=== PATIENT | female | born 1985 | race Caucasian/White ===

== ENCOUNTER → 2016-08-07 | Day surgery (SDC) | payer OTHER ==
[2016-08-06 13:44] VITALS: BMI 22.0
[~2016-08-07] VITALS: Ht 157.5 cm; Wt 55.5 kg
[~2016-08-07] MED LIST: LIDOCAINE HCL 2% 2 ML VIAL (20MG/ML) ONE; MIDAZOLAM HCL 1 MG/ML 2ML VIAL ONE; ONDANSETRON INJ 2 MG/ML 2 ML VIAL ONE; PROPOFOL IV EMULSION 10 MG/ML 20 ML VIAL IV ONE; SODIUM CHLORIDE 0.9% 500ML 500 ML IV ONE
[2016-08-07 13:49] VITALS: Ht 157.5 cm; Wt 55.5 kg
--- NOTE | 2016-08-07 14:08 | Endo History and Physical ---
History & Physical Date of Service: Aug 07, 2016. Chief Complaint: DYSPHAGIA AND SORE THROAT Referring Physician: DR MA History of Present Illness 30 yo CF who presents for EGD secondary to dysphagia and Sore throat. 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) Hx Thoracic Surgery: No Hx Orthopedic: No Hx Urinary Tract Surgery: No Family History None Social History Smoking Status: Never Smoker Hx Substance Use: No Hx Alcohol Use: No Allergies Coded Allergies: Penicillins (Verified Allergy, Unknown, RASH A BABY, 08/07/16) Current Medications Reported Home Medications Medications Dose Route/Sig Max Daily Dose Days Date Category No Active Prescriptions or Reported Medications Rx Vital Signs Weight (Kilograms): 55.45 Height (Feet): 5 Height (Inches): 2 Date Time Temp Pulse Resp B/P Pulse Ox O2 Delivery O2 Flow Rate FiO2 08/07/16 13:59 36.7 77 16 113/74 100 Room Air Physical Exam General Appearance: WD/WN, no apparent distress Respiratory/Chest: Auscultation: breath sounds normal Cardiovascular: Heart Auscultation: RRR Abdomen: Bowel Sounds: normal Inspection & Palpation: soft, non-distended, no tenderness, guarding & rebound Assessment and Plan Assessment: 30 yo CF who presents for EGD secondary to dysphagia and Sore throat. Plan: Proceed with EGD.
--- NOTE | 2016-08-07 14:48 | GI REPORT ---
Procedure Date: 08/07/2016 2:19 PM THIS REPORT HAS BEEN AMENDED Addendum Number: 1 Addendum Date: 08/07/2016 2:51:47 PM Balloon dilation of the distal esophagus was performed with a TTS balloon and dilated from 18 to 20mm. No change was noted in the distal esophagus on inspection. Procedure: Upper GI endoscopy Indications: Dysphagia Medicines: Monitored Anesthesia Care Complications: No immediate complications. Estimated Blood Loss: Estimated blood loss: none. Procedure: Pre-Anesthesia Assessment: - Prior to the procedure, a History and Physical was performed, and patient medications and allergies were reviewed. The patient's tolerance of previous anesthesia was also reviewed. The risks and benefits of the procedure and the sedation options and risks were discussed with the patient. All questions were answered, and informed consent was obtained. Prior Anticoagulants: The patient has taken no previous anticoagulant or antiplatelet agents. ASA Grade Assessment: II - A patient with mild systemic disease. After reviewing the risks and benefits, the patient was deemed in satisfactory condition to undergo the procedure. After obtaining informed consent, the endoscope was passed under direct vision. Throughout the procedure, the patient's blood pressure, pulse, and oxygen saturations were monitored continuously. The scope was introduced through the mouth, and advanced to the second part of duodenum. The upper GI endoscopy was accomplished without difficulty. The patient tolerated the procedure well. Findings: Mildly severe esophagitis with no bleeding was found. Localized mild inflammation characterized by erythema was found in the gastric antrum. Biopsies were taken with a cold forceps for histology. The examined duodenum was normal. Impression: - Mildly severe reflux esophagitis. - Gastritis. Biopsied. - Normal examined duodenum. Recommendation: - Resume previous diet. - Use Protonix (pantoprazole) 40 mg PO daily. - Await pathology results. - Return to GI office as previously scheduled. Mychal Tuttle DO 08/07/2016 2:46:56 PM This report has been signed electronically. Note Initiated On: 08/07/2016 2:19 PM Mychal Tuttle, DO 08/07/2016 2:53:23 PM This report has been signed electronically.
--- NOTE | 2016-08-07 14:51 | Discharge Instructions ---
Endoscopy Patient Instructions Date / Procedure(s) Performed Aug 07, 2016. EGD Allergy Information Coded Allergies: Penicillins (Verified Allergy, Unknown, RASH A BABY, 08/07/16) Discharge Date / Findings Aug 07, 2016. Gastritis s/p biopsies Reflux esophagitis Medication Instructions Start Protonix 40mg by mouth each morning 1/2 hour prior to breakfast. Reported Home Medications Medications Dose Route/Sig Max Daily Dose Days Date Category No Active Prescriptions or Reported Medications Rx Provider Instructions Activity Restrictions - No exercising or heavy lifting for 24 hours. - Do not drink alcohol the day of the procedure. - Do not drive a car or operate machinery until the day after the procedure. - Do not make any important decisions or sign important papers in 24 hours after the procedure. Following Day: - Return to full activity which may include returning to work/school. Diet Start your diet with liquids and light foods (jello, soup, juice, toast). Then eat your usual diet if not nauseated. Treatment For Common After Affects For mild abdominal pain, bloating, or excessive gas: - Rest - Eat lightly - Lie on right side Follow-Up Information Follow-up with DR MA as scheduled Anesthesia Information What You Should Know You have had a procedure that required some medicine to reduce anxiety and discomfort. This treatment is called moderate sedation. After receiving the treatment, you may be sleepy, but you will be able to breathe on your own. The effects of the treatment may last for several hours. Follow these instructions along with Activity/Diet recommendations noted above: * Do NOT do anything where dizziness or clumsiness would be dangerous. * Rest quietly at home today, then you can be up and about tomorrow. * Have a responsible person stay with you the rest of today. * You may have had an I.V. today. If so, you may take the dressing off later today. Recommendations Call your doctor if: * Trouble breathing * Continuous vomiting for more than 24 hours * Temperature above 101 degrees * Severe abdominal pain or bloating * Pain not relieved by pain medicine ordered * There is increased drainage or redness from any incision * A large amount of rectal bleeding greater than 2-3 tablespoons. (If you had a polyp/s removed or have hemorrhoids, a small amount of blood - from the rectum is to be expected.) * You have any unanswered questions or concerns. IN THE EVENT OF A SERIOUS EMERGENCY, GO TO THE NEAREST EMERGENCY ROOM Your discharge instructions were prepared by provider Mychal Tuttle. Patient Instructions Signature Page Diana Faulkner Patient (or Guardian) Signature/Date: I have read and understand the instructions given to me by my caregivers. Caregiver/RN/Doctor Signature/Date: The above-named patient and/or guardian has received patient instructions on this date. + Original Patient Signature Page (only) stays with chart. Please make copy for patient.
[2016-08-07 15:15] VITALS: BP 122/71; PULSE 64; O2SAT 100
--- NOTE | 2016-08-07 15:27 | Anesthesiology Progress Note ---
Anesthesia Post Op Note Date & Time Aug 07, 2016 at 15:27 Vital Signs Pain Intensity: 0 Vital Signs Past 12 Hours Date Time Temp Pulse Resp B/P Pulse Ox O2 Delivery O2 Flow Rate FiO2 08/07/16 13:59 36.7 77 16 113/74 100 Room Air Notes Mental Status: alert / awake / arousable Nausea / Vomiting: adequately controlled Pain: adequately controlled Airway Patency, RR, SpO2: stable & adequate BP & HR: stable & adequate Hydration State: stable & adequate Anesthetic Complications: no major complications apparent
== END | disposition home or self-care (01) ==
LOC: EEVIPCON 13:39 → C.GI 13:39
PROVIDERS: ATTEND Internal Medicine
DX: R13.10 Dysphagia, unspecified (principal); K29.70 Gastritis, unspecified, without bleeding; K21.0 Gastro-esophageal reflux disease with esophagitis; Z98.890 Other specified postprocedural states; Z88.0 Allergy status to penicillin

== ENCOUNTER → 2017-04-17 | Outpatient (CLI) | payer OTHER ==
[2017-04-17 17:16] LABS: BASO % 0.4 %; BASO ABS # 0.04 K/uL (0-0.2); COMPLETE YES; EOS % 0.7 %; HEMATOCRIT 42.1 % (37-47); IG% 0.4 %; LYMPH % 22.7 %; LYMPH ABS # 2.36 K/uL (1.2-3.4); MEAN CELL VOLUME 93.3 fL (80-100); MEAN CORPUSCULAR HEMOGLOBIN 32.6 pg (25-34); MEAN CORPUSCULAR HGB CONC 34.9 g/dl (32-36); MEAN PLATELET VOLUME 10.5 fL (7.4-10.4); MONO % 7.6 %; NEUT % 68.2 %; PLATELET COUNT 220 K/uL (130-400); RED BLOOD COUNT 4.51 M/uL (4.2-5.4); WHITE BLOOD COUNT 10.41 K/uL (4.8-10.8)
[2017-04-17 17:45] LABS: MAGNESIUM 2.2 mg/dl (1.8-2.4); THYROID STIMULATING HORMONE 1.53 uIu/ml (0.300-4.500)
[2017-04-17 17:53] LABS: LYME DISEASE AB IGG NEG (NEG); LYME DISEASE AB IGM NEG (NEG)
== END | disposition home or self-care (01) ==
LOC: C.LABPVFM 12:02
PROVIDERS: ATTEND Nurse Practitioner
DX: T14.8 Other injury of unspecified body region (principal); W57.XXXA Bitten or stung by nonvenomous insect and other nonvenomous arthropods, initial encounter; R53.83 Other fatigue; Z51.81 Encounter for therapeutic drug level monitoring; Z79.899 Other long term (current) drug therapy

== ENCOUNTER → 2017-07-30 | Outpatient (CLI) | payer OTHER ==
[~2017-07-30] MED LIST changes: +DEXL60CA4 PO; -LIDOCAINE HCL 2% 2 ML VIAL (20MG/ML) ONE; -MIDAZOLAM HCL 1 MG/ML 2ML VIAL ONE; -ONDANSETRON INJ 2 MG/ML 2 ML VIAL ONE; -PROPOFOL IV EMULSION 10 MG/ML 20 ML VIAL IV ONE; -SODIUM CHLORIDE 0.9% 500ML 500 ML IV ONE
--- NOTE | 2017-07-30 07:32 | DIAGNOSTIC IMAGING REPORT ---
BILIARY ABDOMEN LIMITED CLINICAL HISTORY: K20.9 [id number] PhexrN13.13 Abdominal pain, epigastricULTR7 TECHNIQUE: Ultrasound COMPARISON STUDY: None FINDINGS: Normal study. Normal gallbladder. Common bile duct 3 mm. Liver is uniform. Pancreas and right kidney are unremarkable. No evidence for right renal hydronephrosis. IMPRESSION: Normal study The above report was generated using voice recognition software. It may contain grammatical, syntax or spelling errors. Electronically signed by: Alfie Oconnell M.D. 07/30/2017 7:30 AM Dictated Date/Time: 07/30/2017 7:29 AM
== END | disposition home or self-care (01) ==
LOC: C.ULTR 06:51
PROVIDERS: ATTEND Registered Nurse
DX: K20.9 Esophagitis, unspecified (principal); R05 Cough; R10.13 Epigastric pain

== ENCOUNTER → 2017-08-01 | Outpatient (CLI) | payer OTHER ==
[2017-08-01 13:06] LABS: BASO % 0.6 %; BASO ABS # 0.03 K/uL (0-0.2); EOS % 2.1 %; HEMATOCRIT 41.4 % (37-47); HEMOGLOBIN 14.2 g/dL (12.0-16.0); IG# 0.01 K/uL (0.00-0.02); LYMPH % 40.8 %; LYMPH ABS # 1.94 K/uL (1.2-3.4); MEAN CORPUSCULAR HEMOGLOBIN 32.6 pg (25-34); MEAN CORPUSCULAR HGB CONC 34.3 g/dl (32-36); MEAN PLATELET VOLUME 10.9 fL (7.4-10.4); MONO % 7.4 %; MONO ABS # 0.35 K/uL (0.11-0.59); NEUT % 48.9 %; NEUT ABS # 2.32 K/uL (1.4-6.5); PLATELET COUNT 206 K/uL (130-400); RED CELL DISTRIBUTION WIDTH CV 12.5 % (11.5-14.5); RED CELL DISTRIBUTION WIDTH SD 43.9 fL (36.4-46.3); WHITE BLOOD COUNT 4.75 K/uL (4.8-10.8)
[2017-08-01 13:34] LABS: ALBUMIN 4.4 gm/dl (3.4-5.0); ALT/SGPT 40 U/L (12-78); AST/SGOT 24 U/L (15-37); BLOOD UREA NITROGEN 15 mg/dl (7-18); CALCIUM 9.1 mg/dl (8.5-10.1); CARBON DIOXIDE 28 mmol/L (21-32); CREATININE 0.75 mg/dl (0.60-1.20); GLUCOSE 86 mg/dl (70-99); LIPASE 117 U/L (73-393); POTASSIUM 3.8 mmol/L (3.5-5.1); SODIUM 139 mmol/L (136-145)
[2017-08-01 13:36] LABS: ALKALINE PHOSPHATASE 54 U/L (45-117); TOTAL PROTEIN 7.7 gm/dl (6.4-8.2)
== END | disposition home or self-care (01) ==
LOC: C.LABPBG 07:53
PROVIDERS: ATTEND Registered Nurse
DX: R05 Cough (principal)

== ENCOUNTER → 2017-10-24 | Outpatient (CLI) | payer OTHER ==
[2017-10-24 19:06] LABS: ALBUMIN 4.2 gm/dl (3.4-5.0); BLOOD UREA NITROGEN 13 mg/dl (7-18); CALCIUM 8.5 mg/dl (8.5-10.1); CARBON DIOXIDE 30 mmol/L (21-32); GLUCOSE 76 mg/dl (70-99); POTASSIUM 3.7 mmol/L (3.5-5.1); SODIUM 139 mmol/L (136-145)
[2017-10-24 19:17] LABS: PHOSPHORUS 3.6 mg/dl (2.5-4.9)
== END | disposition home or self-care (01) ==
LOC: C.LABMFLN 15:38
PROVIDERS: ATTEND Family Medicine
DX: R00.2 Palpitations (principal)

== ENCOUNTER → 2017-11-27 | Outpatient (CLI) | payer OTHER ==
--- NOTE | 2017-11-27 19:15 | ECHOCARDIOGRAM REPORT ---
*NOTICE TO RECEIVING DEMOCRAT AGENCY This information is strictly Confidential and protected under [place] law. [place] law prohibits you from making any further disclosure of this information unless further disclosure is expressly permitted by the written consent of the person to whom it pertains or is authorized by law. A general authorization for the release of medical or other information is not sufficient for this purpose. Hospital accepts no responsibility if the information is made available to any other person, INCLUDING THE PATIENT. Interpretation Summary * Name: NAN LUGO Study Date: 11/27/2017 02:21 PM BP: 119/59 mmHg * Patient Location: [facility] HR: 78 * : 1985 (M/d/yyyy) Gender: Female Height: 62 in * Age: 32 yrs Ethnicity: CA Weight: 120 lb * Ordering Physician: Cristina Jarquin * Referring Physician: Cristina Jarquin * Performed By: Pushpa Baker RDCS * * Reason For Study: Palpitations * BSA: 1.5 m2 * -- Conclusions -- * 1. Normal LV size. Normal LV wall thickness. * 2. Normal LV systolic function. LVEF 60-65%. No regional wall motion abnormalities. * 3. Normal RV size and function. * 4. No significant valvular pathology. * 5. Normal estimated PA and RA pressures. * 6. No prior studies for comparison. Procedure Details * A complete two-dimensional transthoracic echocardiogram was performed (2D, M-mode, Doppler and color flow Doppler). Left Ventricle * The left ventricle is grossly normal size. * There is normal left ventricular wall thickness. * Ejection Fraction = 60-65%. * No regional wall motion abnormalities noted. Right Ventricle * The right ventricle is grossly normal size. * The right ventricular systolic function is normal as assessed by tricuspid annular plane systolic excursion (TAPSE) (normal >1.5 cm). Atria * The left atrial size is normal. * Right atrial size is normal. * No ASD detected; PFO is not assessed. Mitral Valve * The mitral valve is grossly normal. * There is no mitral valve stenosis. * Significant mitral regurgitation is absent. Tricuspid Valve * The tricuspid valve is not well visualized, but is grossly normal. * There is no tricuspid stenosis. * There is trace tricuspid regurgitation. Aortic Valve * The aortic valve opens well. * The aortic valve is trileaflet. * No hemodynamically significant valvular aortic stenosis. * There is no significant aortic regurgitation. Pulmonic Valve * The pulmonary valve is inadequately visualized, but the Doppler data is adequate for interpretation. Great Vessels * The aortic root and proximal ascending aorta are normal sized. Pericardium/Pleural * There is no pericardial effusion. Great Vessels * Normal inferior vena cava size and collapsability with sniff indicates a normal right atrial pressure of 3 mmHg * There is no evidence of pulmonary hypertension. The PA systolic pressure is less than 36 mmHg. MMode 2D Measurements and Calculations IVSd 0.70 cm LVIDd 4.1 cm LVIDs 2.8 cm LVPWd 0.67 cm IVS/LVPW 1.1 FS 31.0 % EDV(Teich) 74.0 ml ESV(Teich) 30.2 ml EF(Teich) 59.2 % EDV(cubed) 68.7 ml ESV(cubed) 22.5 ml EF(cubed) 67.2 % LV mass(C)d 79.3 grams LV mass(C)dI 51.6 grams/m\S\2 SV(Teich) 43.8 ml SI(Teich) 28.5 ml/m\S\2 SV(cubed) 46.2 ml SI(cubed) 30.0 ml/m\S\2 Ao root diam 2.1 cm Ao root area 3.5 cm\S\2 ACS 1.8 cm LA dimension 2.6 cm asc Aorta Diam 1.8 cm LA/Ao 1.2 LVOT diam 1.9 cm LVOT area 2.8 cm\S\2 LVAd ap4 22.6 cm\S\2 LVLd ap4 6.6 cm EDV(MOD-sp4) 65.8 ml EDV(sp4-el) 65.9 ml LVAs ap4 12.1 cm\S\2 LVLs ap4 5.6 cm ESV(MOD-sp4) 22.3 ml ESV(sp4-el) 22.4 ml EF(MOD-sp4) 66.2 % EF(sp4-el) 66.0 % LVAd ap2 24.3 cm\S\2 LVLd ap2 7.9 cm EDV(MOD-sp2) 60.6 ml EDV(sp2-el) 63.2 ml LVAs ap2 12.3 cm\S\2 LVLs ap2 6.2 cm ESV(MOD-sp2) 20.2 ml ESV(sp2-el) 20.8 ml EF(MOD-sp2) 66.7 % EF(sp2-el) 67.1 % LVLd %diff 17.2 % EDV(MOD-bp) 70.4 ml LVLs %diff 10.2 % ESV(MOD-bp) 22.4 ml EF(MOD-bp) 68.2 % SV(MOD-sp4) 43.6 ml SI(MOD-sp4) 28.3 ml/m\S\2 SV(MOD-sp2) 40.4 ml SI(MOD-sp2) 26.3 ml/m\S\2 SV(MOD-bp) 48.0 ml SI(MOD-bp) 31.2 ml/m\S\2 SV(sp4-el) 43.6 ml SI(sp4-el) 28.3 ml/m\S\2 SV(sp2-el) 42.4 ml SI(sp2-el) 27.6 ml/m\S\2 Doppler Measurements and Calculations MV E max irma 98.4 cm/sec MV A max irma 77.2 cm/sec MV E/A 1.3 MV dec time 0.16 sec Ao V2 max 129.7 cm/sec Ao max PG 6.7 mmHg Ao max PG (full) 1.5 mmHg CARROLL(V,A) 2.5 cm\S\2 CARROLL(V,D) 2.5 cm\S\2 LV V1 max PG 5.2 mmHg LV V1 max 114.3 cm/sec PA V2 max 104.4 cm/sec PA max PG 4.4 mmHg PA acc slope 442.1 cm/sec\S\2 PA acc time 0.20 sec TR max irma 224.9 cm/sec PA pr(Accel) -12.67 mmHg
== END | disposition home or self-care (01) ==
LOC: C.CPL 14:13
PROVIDERS: ATTEND Family Medicine
DX: R00.2 Palpitations (principal)

== ENCOUNTER → 2017-12-08 | Outpatient (CLI) | payer OTHER ==
[2017-12-10 13:25] LABS: QUANTIF MITOGEN-NIL 8.16 IU/ML; QUANTIFERON NEGATIVE (NEGATIVE); QUANTIFERON NIL 0.04 IU/ML
== END | disposition home or self-care (01) ==
LOC: C.LABPBG 10:38
PROVIDERS: ATTEND Nurse Practitioner
DX: Z20.1 Contact with and (suspected) exposure to tuberculosis (principal)

== ENCOUNTER → 2018-03-10 | Outpatient (CLI) | payer OTHER | END | disposition home or self-care (01) | LOC: C.LABPBG 08:26 | PROVIDERS: ATTEND Family Medicine | DX: Z00.00 Encounter for general adult medical examination without abnormal findings (principal); Z13.220 Encounter for screening for lipoid disorders ==

== ENCOUNTER → 2018-03-26 | Day surgery (SDC) | payer OTHER ==
[2018-03-25 08:20] VITALS: BMI 22.0
[~2018-03-26] VITALS: Ht 157.5 cm; Wt 54.5 kg
[~2018-03-26] MED LIST changes: +LIDOCAINE HCL 2% 2 ML VIAL (20MG/ML) ONE; +PROPOFOL IV EMULSION 10 MG/ML 20 ML VIAL ONE; +SODIUM CHLORIDE 0.9% 500ML 500 ML IV ONE
--- NOTE | 2018-03-26 13:55 | Endo History and Physical ---
History & Physical Date of Service: Mar 26, 2018. Chief Complaint: GERD Referring Physician: Livier Orellana History of Present Illness 32 yo CF who presents for EGD secondary to GERD. 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) Hx Thoracic Surgery: No Hx Orthopedic: No Hx Urinary Tract Surgery: No Social History Smoking Status: Never Smoker Hx Substance Use: No Hx Alcohol Use: No Allergies Coded Allergies: Penicillins (Verified Allergy, Unknown, RASH A BABY, 03/25/18) Current Medications Reported Home Medications Medications Dose Route/Sig Max Daily Dose Days Date Category Dexilant (Dexlansoprazole) 60 Mg Cap 1 Cap PO QAM 03/25/18 Reported Vital Signs Weight (Kilograms): 54.55 Height (Feet): 5 Height (Inches): 2 Physical Exam General Appearance: WD/WN, no apparent distress Respiratory/Chest: Auscultation: breath sounds normal Cardiovascular: Heart Auscultation: RRR Abdomen: Bowel Sounds: normal Inspection & Palpation: soft, non-distended, no tenderness, guarding & rebound Assessment and Plan Assessment: 32 yo CF who presents for EGD secondary to GERD. Plan: Proceed with EGD.
[2018-03-26 13:56] VITALS: Ht 157.5 cm; Wt 54.5 kg
--- NOTE | 2018-03-26 15:01 | Discharge Instructions ---
Endoscopy Patient Instructions Date / Procedure(s) Performed Mar 26, 2018. EGD Allergy Information Coded Allergies: Penicillins (Verified Allergy, Unknown, RASH A BABY, 03/25/18) Discharge Date / Findings Mar 26, 2018. Distal esophageal biopsies Medication Instructions OK to resume all medications today as prescribed Reported Home Medications Medications Dose Route/Sig Max Daily Dose Days Date Category Dexilant (Dexlansoprazole) 60 Mg Cap 1 Cap PO QAM 03/25/18 Reported Provider Instructions Activity Restrictions - No exercising or heavy lifting for 24 hours. - Do not drink alcohol the day of the procedure. - Do not drive a car or operate machinery until the day after the procedure. - Do not make any important decisions or sign important papers in 24 hours after the procedure. Following Day: - Return to full activity which may include returning to work/school. Diet Start your diet with liquids and light foods (jello, soup, juice, toast). Then eat your usual diet if not nauseated. Treatment For Common After Affects For mild abdominal pain, bloating, or excessive gas: - Rest - Eat lightly - Lie on right side Follow-Up Information Follow-up with KANDACE VELA as scheduled Anesthesia Information What You Should Know You have had a procedure that required some medicine to reduce anxiety and discomfort. This treatment is called moderate sedation. After receiving the treatment, you may be sleepy, but you will be able to breathe on your own. The effects of the treatment may last for several hours. Follow these instructions along with Activity/Diet recommendations noted above: * Do NOT do anything where dizziness or clumsiness would be dangerous. * Rest quietly at home today, then you can be up and about tomorrow. * Have a responsible person stay with you the rest of today. * You may have had an I.V. today. If so, you may take the dressing off later today. Recommendations Call your doctor if: * Trouble breathing * Continuous vomiting for more than 24 hours * Temperature above 101 degrees * Severe abdominal pain or bloating * Pain not relieved by pain medicine ordered * There is increased drainage or redness from any incision * A large amount of rectal bleeding greater than 2-3 tablespoons. (If you had a polyp/s removed or have hemorrhoids, a small amount of blood - from the rectum is to be expected.) * You have any unanswered questions or concerns. IN THE EVENT OF A SERIOUS EMERGENCY, GO TO THE NEAREST EMERGENCY ROOM Your discharge instructions were prepared by provider Mychal Tuttle. Patient Instructions Signature Page Diana Faulkner Patient (or Guardian) Signature/Date: I have read and understand the instructions given to me by my caregivers. Caregiver/RN/Doctor Signature/Date: The above-named patient and/or guardian has received patient instructions on this date. + Original Patient Signature Page (only) stays with chart. Please make copy for patient.
--- NOTE | 2018-03-26 15:04 | GI REPORT ---
Patient Name: Diana Faulkner Procedure Date: 03/26/2018 2:02 PM Date of : 1985 Admit Type: Outpatient Age: 32 Gender: Female Attending MD: Mychal Tuttle DO Procedure: Upper GI endoscopy Providers: Mychal Tuttle DO Referring MD: Livier Orellana Indications: Gastro-esophageal reflux disease Medicines: Monitored Anesthesia Care Complications: No immediate complications. Estimated Blood Loss: Estimated blood loss: none. Procedure: Pre-Anesthesia Assessment: - Prior to the procedure, a History and Physical was performed, and patient medications and allergies were reviewed. The patient's tolerance of previous anesthesia was also reviewed. The risks and benefits of the procedure and the sedation options and risks were discussed with the patient. All questions were answered, and informed consent was obtained. Prior Anticoagulants: The patient has taken no previous anticoagulant or antiplatelet agents. ASA Grade Assessment: II - A patient with mild systemic disease. After reviewing the risks and benefits, the patient was deemed in satisfactory condition to undergo the procedure. After obtaining informed consent, the endoscope was passed under direct vision. Throughout the procedure, the patient's blood pressure, pulse, and oxygen saturations were monitored continuously. The scope was introduced through the mouth, and advanced to the second part of duodenum. The upper GI endoscopy was accomplished without difficulty. The patient tolerated the procedure well. Findings: The Z-line was irregular and was found 38 cm from the incisors. Biopsies were taken with a cold forceps for histology. The stomach was normal. The examined duodenum was normal. Impression: - Z-line irregular, 38 cm from the incisors. Biopsied. - Normal stomach. - Normal examined duodenum. Recommendation: - Resume previous diet. - Continue present medications. - Await pathology results. - Return to primary care physician as previously scheduled. Mychal Tuttle DO 03/26/2018 3:04:09 PM This report has been signed electronically. Note Initiated On: 03/26/2018 2:02 PM Number of Addenda: 0 I attest to the content of the Intraoperative Record and orders documented therein, exceptions below {[id number]}
[2018-03-26 15:17] VITALS: BP 108/79; PULSE 60; O2SAT 100
--- NOTE | 2018-03-26 15:36 | Anesthesiology Progress Note ---
Anesthesia Post Op Note Date & Time Mar 26, 2018 at 15:36 Vital Signs Vital Signs Past 12 Hours Date Time Temp Pulse Resp B/P (MAP) Pulse Ox O2 Delivery O2 Flow Rate FiO2 03/26/18 14:05 36.9 75 20 115/79 (91) 100 Room Air Notes Mental Status: alert / awake / arousable, participated in evaluation Pt Amnestic to Procedure: Yes Nausea / Vomiting: adequately controlled Pain: adequately controlled Airway Patency, RR, SpO2: stable & adequate BP & HR: stable & adequate Hydration State: stable & adequate Anesthetic Complications: no major complications apparent
== END | disposition home or self-care (01) ==
LOC: C.GI 13:29
PROVIDERS: ATTEND Internal Medicine
DX: K21.9 Gastro-esophageal reflux disease without esophagitis (principal); Z88.0 Allergy status to penicillin; Z79.899 Other long term (current) drug therapy

== ENCOUNTER 2019-08-05 03:41 | Inpatient (IN) ==
[2019-08-05] MEDS ORDERED: OXYTOCIN 30 UNITS/500 ML BAG IV PRN ×2 (06:33→16:45)
--- NOTE | 2019-08-05 06:40 | History & Physical Report ---
Date of Service August 05, 2019 Assessment & Plan (1) Normal labor: IUP at 39 weeks in active labor patient requesting epidural analgesia anticipate vaginal . History of Present Illness Primary Care Provider: Cristina Jarquin MD Patient is a 33 yo white female EDC 08/10/19 who presents at 39 weeks with regular ctns. After walking for 2hours she has progressed from 3 cm to 5cm dilation.Contractions are now 3 minutes apart. GBS negative. has been uncomplicated. Allergies Allergy/AdvReac Type Severity Reaction Status Date / Time Penicillins Allergy Unknown RASH A Verified 08/05/19 03:54 BABY Home Medications Home Medications Medication Instructions Recorded Confirmed Type prenat.vits,chinmay,yby-zwlc-kokpx 1 tab PO DAILY 03/12/19 08/05/19 History ferrous sulfate [Iron (ferrous 325 mg PO WK 08/05/19 08/05/19 History sulfate)] Patient History Medical History (Updated 08/05/19 @ 06:39 by Claire Cazares MD, FACOG) Acid reflux History of angular cheilitis History of breast lump History of chicken pox History of shingles History of UTI Screening, , for anatomic survey (Inactive) Surgical History S/P wisdom tooth extraction Status post Mohs surgery right ear, 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 Social History Preferred Language: Dominican Communication Ability: Effective Rn Charge Required: No Beliefs That Will Affect Care: None marital status: Current Living Situation: Spouse current occupational status: employed current occupation: [employer] Other Information That Helps Us Care for You: No Feels Safe at Home: Yes Safety Concerns: Feels Safe At This Time Smoking Status: Never smoker Second Hand Exposure: No ; Hx Alcohol Use: No Hx Substance Use: No Dental Care, Regularly: Yes Seatbelt Use: always Review of Systems All systems reviewed & are unremarkable except as noted in HPI & below Physical Exam Constitutional: WD/WN, vitals as above Respiratory: normal respiratory effort, lungs clear to auscultation Cardiovascular: RRR, no murmur, no edema Gastrointestinal (Abdomen): normal bowel sounds, soft, nontender, no hepatosplenomegaly Psychiatric: A+Ox3, euthymic affect Genitourinary: OB Exam Abdomen: + regular contractions Manual OB Exam: + cervical dilation 5 cm, + cervical effacement 70% and + station -2 OB Exam Monitor Tracing: + external FHT monitor used, + external uterine monitor used, + category I and + normal FHT variability Results & Data Vital Signs (Past 12 Hours) Vital Signs Temp Pulse Resp BP 08/05/19 04:03 96 H 119/77 08/05/19 03:57 97.9 F 96 H 18 119/77 Code Status & VTE Plan VTE Prophylaxis Plan VTE Prophylaxis will be ordered: No
[2019-08-05] MEDS: LACTATED RINGER'S 1,000 ML IV PRN ×3 (06:45→13:09)
[2019-08-05] MEDS ORDERED: fentaNYL citrate 100 MCG/2 ML VIAL ONE (07:01)
[2019-08-05] MEDS ORDERED: ePHEDrine sulfate 50 MG/ML AMP ONE (07:01)
[2019-08-05] MEDS ORDERED: BUPIVACAINE 0.25% 30 ML VIAL ONE (07:02)
[2019-08-05] MEDS ORDERED: fentaNYL 2MCG/ML ROPIV 1.25MG/ML 100 ML BAG EPI ONE (07:02)
[2019-08-05 07:05] LABS: Hematocrit (blood only) 39.4 % (37-47); Hemoglobin 13.9 g/dL (12.0-16.0); Mean Corpuscular Hemoglobin 33.7 pg (25-34); Mean Corpuscular Volume 95.6 fL (80-100); Mean Platelet Volume 10.2 fL (7.4-10.4); Platelet Count 212 K/uL (130-400); RDW Standard Deviation 45.1 fL (36.4-46.3); Red Blood Count 4.12 M/uL (4.2-5.4); White Blood Count 12.21 K/uL (4.8-10.8)
[2019-08-05 07:09] LABS: Mean Corpuscular Hgb Conc 35.3 g/dL (32-36)
[2019-08-05] MEDS ORDERED: ePHEDrine sulfate 50 MG/ML AMP IV PRN (08:39)
[2019-08-05] MEDS ORDERED: ONDANSETRON INJ 2 MG/ML 2 ML VIAL IV PRN (08:39)
[2019-08-05] MEDS ORDERED: DiphenhydrAMINE HCL 50 MG/ML VIAL IV PRN (08:39)
[2019-08-05] MEDS ORDERED: NALBUPHINE HCL INJ 10 MG/ML AMP IV PRN (08:39)
[2019-08-05] MEDS ORDERED: fentaNYL 2MCG/ML ROPIV 1.25MG/ML 100 ML BAG EPI PRN (08:39)
[2019-08-05] MEDS ORDERED: NALOXONE HCL 0.4 MG/1 ML VIAL/CARP IV PRN (08:39)
[2019-08-05] MEDS ORDERED: NALOXONE HCL 1 MG in SODIUM CHLORIDE 0.9% 1000ML 1,000 ML IV PRN (08:39)
--- NOTE | 2019-08-05 08:39 | Anesthesiology Consultation ---
Date of Service August 05, 2019 Assessment & Plan (1) Encounter for pre-operative examination: Chart Review Chart Review: Patient NOT seen in Pre Admission Testing and Acceptable Risk for Labor Epidural Consults Requested none ASA ASA2 Proposed Anesthesia Anesthesia Type: Labor Epidural Risk / Benefits Reviewed With: PT / POA / Parent / Guardian, Accepts Plan and Informed Consent Obtained History Height/Weight Height: 5 ft 2 in Weight: 64.41 kg Allergies Allergy/AdvReac Type Severity Reaction Status Date / Time Penicillins Allergy Unknown RASH A Verified 08/05/19 03:54 BABY Medications Home Medications Medication Instructions Recorded Confirmed Last Taken prenat.vits,chinmay,dvr-zkca-qzenp 1 tab PO DAILY 03/12/19 08/05/19 08/03/19 20:00 ferrous sulfate [Iron (ferrous 325 mg PO WK 08/05/19 08/05/19 07/29/19 20:00 sulfate)] Active Medications Generic Name Dose Route Start Last Admin Trade Name Freq PRN Reason Stop Dose Admin Lactated Ringer's 1,000 mls @ 125 mls/hr 08/05/19 06:33 08/05/19 07:39 Lr IV 08/07/19 06:32 125 mls/hr .Q8H PRN Administration L&D Protocol Protocol NPO Date Last Intake of Fluids: 08/05/19 Time Last Intake of Fluids: 06:00 Date Last Intake of Solids: 08/04/19 Time Last Intake of Solids: 23:00 Past Medical History Medical History Acid reflux History of angular cheilitis History of breast lump History of chicken pox History of shingles History of UTI Screening, , for anatomic survey (Inactive) Exercise / Class Metabolic Activity II 4-5 Yardwork/Stairs/Walk up hill Past Family History Family History Mother Diabetes delivery Grandfather (Maternal) Leukemia Past Surgical History Surgical History S/P wisdom tooth extraction Status post Mohs surgery right ear, 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 Past Anesthesia History No Hx of Anesthesia Complications and No Family Hx of Anesthesia Complications History of PONV No Hx of PONV and No Hx of Motion Sickness Social History Smoking Status: Never smoker Hx Alcohol Use: No Hx Substance Use: No substance use type: does not use Physical Exam Vital Signs Last Vital Signs Temp 36.6 C 08/05/19 06:59 Pulse 73 08/05/19 08:36 Resp 18 08/05/19 08:15 BP 114/56 L 08/05/19 08:36 Pulse Ox 97 08/05/19 08:31 ENMT Mouth: no dentition abnormality Thyromental Distance: > or= 3.5 Finger Breadths Mallampati Class: II Neck normal visual inspection Respiratory normal respiratory effort Auscultation: lungs clear to auscultation bilaterally Cardiovascular Rate/Rhythm: regular rate and regular rhythm Psychiatric Orientation: alert Testing Laboratory Results 08/05/19 06:54
--- NOTE | 2019-08-05 09:40 | Labor Progress Brief Note ---
Date of Service August 05, 2019 Subjective Comfortable with epidural Assessment & Plan (1) Normal labor: Continue epidural. AROM augmentation done this exam. Present on Admission?: Yes Physical Exam Genitourinary: Manual OB Exam: + cervical dilation 6 cm, + cervical effacement 100%, + station -1 and + amniotic fluid (AROM) clear Results & Data Vital Signs (Past 12 Hours) Vital Signs Temp Pulse Resp BP Pulse Ox 08/05/19 09:36 76 97 08/05/19 09:31 94 H 117/64 96 08/05/19 09:26 81 96 08/05/19 09:21 83 97 08/05/19 09:16 79 98 08/05/19 09:15 114 H 101/70 08/05/19 09:13 98.8 F 08/05/19 09:11 92 H 96 08/05/19 09:10 80 114/58 L 08/05/19 09:06 80 96 08/05/19 09:04 110 H 107/58 L 08/05/19 09:01 70 96 08/05/19 09:00 99 H 18 116/59 L 08/05/19 08:56 67 97 08/05/19 08:54 121 H 114/56 L 08/05/19 08:51 81 116/64 97 08/05/19 08:46 111 H 97 08/05/19 08:45 92 H 108/57 L 08/05/19 08:41 71 97 08/05/19 08:38 121 H 104/58 L 08/05/19 08:36 92 H 114/56 L 97 08/05/19 08:34 90 119/61 08/05/19 08:32 76 112/55 L 08/05/19 08:31 68 97 08/05/19 08:30 62 18 120/58 L 08/05/19 08:28 113 H 102/55 L 08/05/19 08:26 95 H 108/55 L 98 08/05/19 08:24 71 119/58 L 08/05/19 08:22 70 123/57 L 08/05/19 08:21 76 97 08/05/19 08:20 91 H 106/60 08/05/19 08:18 71 122/59 L 08/05/19 08:16 79 115/53 L 99 08/05/19 08:15 18 08/05/19 08:14 85 114/58 L 08/05/19 08:12 82 119/57 L 08/05/19 08:11 87 99 08/05/19 08:10 75 110/59 L 08/05/19 08:08 76 123/58 L 08/05/19 08:06 115 H 106/62 98 08/05/19 08:04 90 119/57 L 08/05/19 08:02 90 113/61 08/05/19 08:01 87 97 08/05/19 08:00 90 16 116/64 08/05/19 07:58 97 H 116/65 08/05/19 07:56 93 H 117/66 97 08/05/19 07:54 87 129/75 08/05/19 07:51 104 H 96 08/05/19 07:50 92 H 121/69 08/05/19 07:49 18 08/05/19 07:46 103 H 96 08/05/19 07:41 97 H 98 08/05/19 07:36 109 H 97 08/05/19 07:31 99 H 99 08/05/19 07:26 86 98 08/05/19 07:21 89 97 08/05/19 07:16 90 97 08/05/19 07:11 157 H 91 08/05/19 06:59 97.9 F 91 H 20 130/72 08/05/19 04:03 96 H 119/77 08/05/19 03:57 97.9 F 96 H 18 119/77
--- NOTE | 2019-08-05 14:35 | Labor Progress Brief Note ---
Date of Service August 05, 2019 Subjective Comfortable with epidural Assessment & Plan (1) Normal labor: Begin second stage Physical Exam Genitourinary: Manual OB Exam: + cervical dilation 10 cm, + cervical effacement 100%, + station + 1 and + amniotic fluid clear OB Exam Monitor Tracing: + category I Results & Data Vital Signs (Past 12 Hours) Vital Signs Temp Pulse Resp BP Pulse Ox 08/05/19 14:33 131 H 107/55 L 08/05/19 14:31 109 H 96 08/05/19 14:26 122 H 95 08/05/19 14:21 86 97 08/05/19 14:17 85 97/52 L 08/05/19 14:16 84 95 08/05/19 14:11 90 95 08/05/19 14:06 94 H 97 08/05/19 14:01 88 105/58 L 97 08/05/19 14:00 20 08/05/19 13:56 85 98 08/05/19 13:51 99 H 98 08/05/19 13:47 130 H 112/57 L 08/05/19 13:46 69 97 08/05/19 13:41 80 97 08/05/19 13:36 96 H 98 08/05/19 13:34 98.8 F 08/05/19 13:31 96 H 102/57 L 99 08/05/19 13:30 20 08/05/19 13:26 84 98 08/05/19 13:21 79 96 08/05/19 13:17 83 105/53 L 08/05/19 13:16 84 97 08/05/19 13:11 82 96 08/05/19 13:06 79 97 08/05/19 13:01 91 H 120/56 L 97 08/05/19 13:00 20 08/05/19 12:56 78 96 08/05/19 12:51 112 H 95 08/05/19 12:46 82 111/53 L 96 08/05/19 12:45 99.5 F 18 08/05/19 12:41 76 117/56 L 96 08/05/19 12:36 118 H 96 08/05/19 12:33 121 H 78/42 L 08/05/19 12:31 94 H 96 08/05/19 12:30 16 08/05/19 12:26 86 95 08/05/19 12:21 79 96 08/05/19 12:17 104 H 86/50 L 08/05/19 12:16 80 96 08/05/19 12:11 106 H 96 08/05/19 12:06 96 H 96 08/05/19 12:02 81 98/53 L 08/05/19 12:01 78 95 08/05/19 12:00 18 08/05/19 11:56 81 97 08/05/19 11:51 86 97 08/05/19 11:46 78 106/58 L 97 08/05/19 11:45 16 08/05/19 11:41 73 97 08/05/19 11:36 70 95 08/05/19 11:31 142 H 93/55 L 96 08/05/19 11:30 18 08/05/19 11:26 84 96 08/05/19 11:21 101 H 95 08/05/19 11:17 136 H 106/53 L 08/05/19 11:16 117 H 96 08/05/19 11:15 18 08/05/19 11:11 96 H 95 08/05/19 11:06 74 96 08/05/19 11:01 73 97/51 L 96 08/05/19 11:00 98.6 F 20 08/05/19 10:56 78 96 08/05/19 10:51 86 96 08/05/19 10:46 106 H 101/52 L 95 08/05/19 10:41 113 H 97 08/05/19 10:36 99 H 97 08/05/19 10:32 113 H 106/61 08/05/19 10:31 110 H 96 08/05/19 10:30 18 08/05/19 10:26 105 H 97 08/05/19 10:21 73 96 08/05/19 10:17 108 H 108/61 08/05/19 10:16 108 H 97 08/05/19 10:15 20 08/05/19 10:11 88 96 08/05/19 10:06 106 H 97 08/05/19 10:03 109 H 106/62 08/05/19 10:01 95 H 97 08/05/19 10:00 16 08/05/19 09:56 115 H 97 08/05/19 09:51 74 97 08/05/19 09:47 82 117/56 L 08/05/19 09:46 86 97 08/05/19 09:45 16 08/05/19 09:41 72 97 08/05/19 09:36 76 97 08/05/19 09:31 94 H 117/64 96 08/05/19 09:30 18 08/05/19 09:26 81 96 08/05/19 09:21 83 97 08/05/19 09:16 79 98 08/05/19 09:15 114 H 16 101/70 08/05/19 09:13 98.8 F 08/05/19 09:11 92 H 96 08/05/19 09:10 80 114/58 L 08/05/19 09:06 80 96 08/05/19 09:04 110 H 107/58 L 08/05/19 09:01 70 96 08/05/19 09:00 99 H 18 116/59 L 08/05/19 08:56 67 97 08/05/19 08:54 121 H 114/56 L 08/05/19 08:51 81 116/64 97 08/05/19 08:46 111 H 97 08/05/19 08:45 92 H 108/57 L 08/05/19 08:41 71 97 08/05/19 08:38 121 H 104/58 L 08/05/19 08:36 92 H 114/56 L 97 08/05/19 08:34 90 119/61 08/05/19 08:32 76 112/55 L 08/05/19 08:31 68 97 08/05/19 08:30 62 18 120/58 L 08/05/19 08:28 113 H 102/55 L 08/05/19 08:26 95 H 108/55 L 98 08/05/19 08:24 71 119/58 L 08/05/19 08:22 70 123/57 L 08/05/19 08:21 76 97 08/05/19 08:20 91 H 106/60 08/05/19 08:18 71 122/59 L 08/05/19 08:16 79 115/53 L 99 08/05/19 08:15 18 08/05/19 08:14 85 114/58 L 08/05/19 08:12 82 119/57 L 08/05/19 08:11 87 99 08/05/19 08:10 75 110/59 L 08/05/19 08:08 76 123/58 L 08/05/19 08:06 115 H 106/62 98 08/05/19 08:04 90 119/57 L 08/05/19 08:02 90 113/61 08/05/19 08:01 87 97 08/05/19 08:00 90 16 116/64 08/05/19 07:58 97 H 116/65 08/05/19 07:56 93 H 117/66 97 08/05/19 07:54 87 129/75 08/05/19 07:51 104 H 96 08/05/19 07:50 92 H 121/69 08/05/19 07:49 18 08/05/19 07:46 103 H 96 08/05/19 07:41 97 H 98 08/05/19 07:36 109 H 97 08/05/19 07:31 99 H 99 08/05/19 07:26 86 98 08/05/19 07:21 89 97 08/05/19 07:16 90 97 08/05/19 07:11 157 H 91 08/05/19 06:59 97.9 F 91 H 20 130/72 08/05/19 04:03 96 H 119/77 08/05/19 03:57 97.9 F 96 H 18 119/77
--- NOTE | 2019-08-05 16:30 | Delivery Summary ---
Vaginal Delivery Summary Date of Service August 05, 2019 Vaginal Delivery Summary DIAGNOSES: 1. Posada intrauterine at 39w4d gestation. 2. Spontaneous onset of labor. 3. Group B Streptococcus Neg. PROCEDURE: Spontaneous vaginal delivery and repair of second degree laceration. SURGEON: Enedelia Valladares MD. MEAT CLERK: None. ESTIMATED BLOOD LOSS: 300 mL. COMPLICATIONS: None. PLACENTA: Spontaneous and intact with a 3-vessel cord. DISPOSITION: Stable to labor and delivery. DESCRIPTION: The patient pushed well and brought the head to in OA position. The infant's head was allowed to deliver with contraction force and no further active pushing, with the perineum protected during this time. The shoulders delivered easily with a maternal pushing effort. There was no nuchal cord. The left shoulder was anterior. The shoulders and body delivered without any difficulty, and the was placed on the maternal abdomen. It was vigorous and moving all extremities, and making respiratory efforts. The cord was doubly clamped by the MD and then cut by the MD. The placenta delivered spontaneously and was noted to be intact and with a 3VC. The cervix, vagina and perineum were examined and were found to have a second degree la ceration that was repaired with vicryl suture.. The fundus was firm and lochia minimal immediately after delivery.
[2019-08-05] MEDS ORDERED: BENZOCAINE 20% AER SPR 82.5 GM CAN EXT PRN (16:45)
[2019-08-05] MEDS ORDERED: LACTATED RINGER'S 1,000 ML IV SCH (16:45)
[2019-08-05] MEDS ORDERED: OXYCODONE/ACETAMINOPHEN 5mg/325mg TAB PO PRN (16:45)
[2019-08-05] MEDS ORDERED: DIPHTHERIA/TETANUS/PERTUSSIS 0.5 ML SYR/VIAL IM ONE (16:45)
[2019-08-05] MEDS ORDERED: bisacodyL 10 MG SUPP PR PRN (16:45)
[2019-08-05] MEDS ORDERED: HYDROCORTISONE ACETATE 25 MG SUPP PR PRN (16:45)
[2019-08-05] MEDS ORDERED: SUPERCREAM 0.870% 15 GM JAR EXT PRN (16:45)
--- NOTE | 2019-08-05 16:51 | Anesthesia Procedure Note ---
Date of Service August 05, 2019 Anesthesia Post Epidural Note Vital Signs Vital Signs: Temp Pulse Resp BP Pulse Ox 37.1 C 73 20 137/78 97 08/05/19 14:33 08/05/19 16:46 08/05/19 15:00 08/05/19 16:46 08/05/19 16:07 Pain Intensity Bilateral Abdomen: Pain Intensity: 5 Notes Mental Status: alert / awake / arousable Nausea / Vomiting: adequately controlled Pain: adequately controlled Airway Patency, RR, SpO2: stable & adequate BP & HR: stable & adequate Hydration State: stable & adequate Neuraxial Anesthesia: was administered and sensory block is resolving Anesthetic Complications: no major complications apparent and Pt Satisfied with anesthetic care Epidural: Removed without complications and With tip intact
[2019-08-05] MEDS: IBUPROFEN 600 MG TAB PO PRN (19:11)
[2019-08-05] MEDS: ACETAMINOPHEN 325 MG TAB PO PRN (21:41)
[2019-08-05] MEDS: DOCUSATE SODIUM 100 MG CAP PO SCH (21:41)
[2019-08-06] MEDS: IBUPROFEN 600 MG TAB PO PRN ×2 (00:39→17:26)
[2019-08-06] MEDS: ACETAMINOPHEN 325 MG TAB PO PRN ×2 (05:51→13:43)
[2019-08-06 06:33] LABS: Hematocrit (blood only) 33.5 % (37-47); Hemoglobin 11.5 g/dL (12.0-16.0); Mean Corpuscular Hemoglobin 32.9 pg (25-34); Mean Corpuscular Hgb Conc 34.3 g/dL (32-36); Mean Corpuscular Volume 95.7 fL (80-100); Mean Platelet Volume 10.3 fL (7.4-10.4); Platelet Count 161 K/uL (130-400); RDW Coefficient of Variation 13.4 % (11.5-14.5); RDW Standard Deviation 46.2 fL (36.4-46.3); White Blood Count 12.88 K/uL (4.8-10.8)
[2019-08-06] MEDS ORDERED: PRENATAL VITAMIN 1 TAB PO SCH (08:00)
--- NOTE | 2019-08-06 08:02 | Obstetrical Progress Note ---
Date of Service August 06, 2019 Assessment & Plan (1) Normal labor: PPD#1 recovering well. Wishes D/C home at 24hr post delivery. Subjective Ambulation: ambulating normally Voiding: no voiding problems Passing Gas:: Yes Diet Tolerance:: regular diet Lochia:: Small Feeding Type:: breast feeding Physical Exam Constitutional WD/WN, vitals as above Eyes PERRL, conjunctivae normal, anicteric sclerae Neck normal visual inspection Respiratory normal respiratory effort and able to speak in complete sentences; no respiratory distress and no labored breathing Cardiovascular Rate/Rhythm: regular rate and regular rhythm Extremities: no edema Chest (Breasts) Chest: normal inspection of chest Gastrointestinal (Abdomen) Inspection/Auscultation: abdomen normal to inspection Soft, postgravid Psychiatric A+Ox3, euthymic affect Genitourinary OB Exam Abdomen: + fundal height Fundus: + firm and + relation to umbilicus (fundus just below umbilicus); not tender Results & Data Vital Signs (Past 12 Hours) Vital Signs Temp Pulse Resp BP Pulse Ox 08/06/19 03:50 97.9 F 75 18 114/78 97 08/06/19 00:35 98.2 F 54 L 18 134/87
[2019-08-06] MEDS: DOCUSATE SODIUM 100 MG CAP PO SCH (09:08)
[2019-08-06] MEDS ORDERED: bisacodyL 5 MG TABEC PO SCH (20:00)
== END 2019-08-06 19:35 | disposition home or self-care (01) | DRG 807 ==
LOC: OPB 03:41 → 4S1 03:43 → 4S2 19:15

== ENCOUNTER 2021-11-12 07:47 | Inpatient (IN) ==
[2021-11-12] MEDS ORDERED: OXYTOCIN 30 UNITS/500 ML BAG IV PRN ×2 (07:52→09:39)
--- NOTE | 2021-11-12 08:05 | History & Physical Report ---
Date of Service November 12, 2021 Assessment & Plan (1) 40 weeks gestation of : Plan: plan induction with pitocin, arom as indicated, epidural on demand. fetus category one. anticipate . Admission and Anticipated Discharge Date Admission Date: November 12, 2021 History of Present Illness Chief Complaint: postdates induction Primary Care Provider: SUNDAR Toribio Patient is a [id number] with iup at 40 6/7 weeks who presents to labor and delivery for induction of labor for postdates. Notes good fm, no lof, vb, occasional contractions. has been uncomplicated. and Delivery Plans Spouse has Bicuspid Aortic Valve * echo 22-24wks -Normal *needs PPX echo *ok to deliver at [facility] History of Blighted Ovum in previous Flu shot given 04/26/21 SB IOL 11/12/21 OB Labs: Blood Type O Positive 12/29/18 Antibody Screen NEGATIVE 12/29/18 Hemoglobin 11.7 g/dL (11.7-15.5) 08/16/21 Hematocrit 34.3 % (35.0-45.0) L 08/16/21 Mean Corpuscular Volume 95.9 fL (80.0-100.0) 03/29/21 Platelet Count 203 Thousand/uL (140-400) 03/29/21 Rubella IgG Antibody 4.31 Index 03/29/21 Rapid Plasma Reagin Nonreactive (Nonreactive) 12/29/18 Hepatitis B Surface Antigen Neg (Neg) 12/29/18 HIV (1&2) Ab and P24 Ag, 4th Gener NON-REACTIVE (NON-REACTIVE) 03/29/21 Glucose 1 Hour 50 gm Load 104 mg/dL (<135) 08/16/21 OB Optional Labs: Chlamydia trachomatis RNA NOT DETECTED (NOT DETECTED) 03/29/21 Neisseria gonorrhoeae RNA NOT DETECTED (NOT DETECTED) 03/29/21 Thyroid Stimulating Hormone (TSH) 1.880 uIu/ml (0.300-4.500) 10/24/17 Labs Reviewed: declined panorama--[facility] 04/2021 declined cf/sma--[facility] 04/2021 declines quad GBS negative--[facility] Allergies Allergy/AdvReac Type Severity Reaction Status Date / Time adhesive Allergy Mild rash with Verified 11/09/21 08:54 bandaids Penicillins Allergy Mild RASH A Verified 11/09/21 08:54 BABY Home Medications Medication Instructions Recorded Confirmed Type prenat.vits,chinmay,zyk-bnqi-hmiyj 1 tab PO HS 03/12/19 11/09/21 History Patient History Medical History Acid reflux Blighted ovum Encounter for pre-operative examination size inconsistent with dates History of angular cheilitis History of breast lump History of melanoma Surgical History History of dilation and curettage History of esophagogastroduodenoscopy (EGD) x2 S/P wisdom tooth extraction Status post Mohs surgery right ear, 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 Family History Mother Diabetes delivery Grandfather (Maternal) Leukemia Brother Dysrhythmia Other No family history of adverse response to anesthesia Denies family history of Ovarian cancer Prostate cancer Crohn's disease Myocardial infarction Breast cancer Colorectal cancer Social History (Updated 03/23/21 @ 08:56 by Richelle Nesbitt RN) Smoking Status: Never smoker Second Hand Exposure: No; Hx Alcohol Use: No Hx Substance Use: No Preferred Language: Spanish Communication Ability: Effective Visual Impairment: No Limitations Hearing Ability: Normal Worm Packer Required: No Beliefs That Will Affect Care: None marital status: marital status details: Alexis (30) [phone] Current Living Situation: Family Current Living Situation Comment: lives with spouse and daughter current occupational status: employed current occupation: [employer] Feels Safe at Home: Yes Dental Care, Regularly: Yes Seatbelt Use: always Assistive Devices: None OB History Past Pregnancies Del. Date GA wks Lbr Lgth wt Sex Type del Anes Place Del Prov ? Comment 08/05/19 39 7lb 0oz F Epidu [facility] Dr. Valladares No 11/03/20 Aborted-Spontaneous [employer] History noncontributory Physical Exam Constitutional: WD/WN, vitals as above Neck: trachea midline, no thyromegaly Gastrointestinal (Abdomen): soft, gravid, nt Psychiatric: A+Ox3, euthymic affect Genitourinary: cx--75/-2/post/soft, efw 7-8# toco--occasional contractions efm--150s with mod variability, accels to 160s, no decels Code Status & VTE Plan VTE Prophylaxis Plan VTE Prophylaxis will be ordered: No Coding Level of Care Code None Diagnoses 40 weeks gestation of Z3A.40
[2021-11-12 08:31] LABS: Hemoglobin 12.4 g/dL (12.0-16.0); Mean Corpuscular Hemoglobin 31.4 pg (25-34); Mean Corpuscular Hgb Conc 33.5 g/dL (32-36); Mean Corpuscular Volume 93.7 fL (80-100); Mean Platelet Volume 10.3 fL (7.4-10.4); Platelet Count 209 K/uL (130-400); RDW Standard Deviation 48.1 fL (36.4-46.3); Red Blood Count 3.95 M/uL (4.2-5.4)
[2021-11-12] MEDS: LACTATED RINGER'S 1,000 ML IV PRN ×3 (08:49→15:18)
[2021-11-12] MEDS ORDERED: ePHEDrine sulfate 50 MG/ML AMP ONE (12:13)
[2021-11-12] MEDS ORDERED: fentaNYL citrate 100 MCG/2 ML VIAL ONE (12:13)
[2021-11-12] MEDS ORDERED: BUPIVACAINE 0.25% 30 ML VIAL ONE (12:13)
[2021-11-12] MEDS ORDERED: SODIUM CHLORIDE 0.9% INJ 10 ML VIAL ONE (12:13)
[2021-11-12] MEDS ORDERED: fentaNYL 2MCG/ML ROPIVACAINE 1.25MG/ML 100 ML BAG EPI ONE (12:14)
[2021-11-12] MEDS ORDERED: NALOXONE HCL 1 MG in SODIUM CHLORIDE 0.9% 1000ML 1,000 ML IV PRN ×2 (13:08→19:16)
[2021-11-12] MEDS ORDERED: NALOXONE HCL 0.4 MG/1 ML VIAL/CARP IV PRN ×2 (13:08→19:16)
[2021-11-12] MEDS ORDERED: PROMETHAZINE HCL 6.25 MG in SODIUM CHLORIDE 0.9% 50 ML IV PRN ×2 (13:08→19:16)
[2021-11-12] MEDS ORDERED: fentaNYL 2MCG/ML ROPIVACAINE 1.25MG/ML 100 ML BAG EPI PRN (13:08)
[2021-11-12] MEDS ORDERED: NALBUPHINE HCL INJ 10 MG/ML AMP IV PRN ×2 (13:08→19:16)
[2021-11-12] MEDS ORDERED: diphenhydrAMINE 50 MG/ML VIAL IV PRN (13:08)
[2021-11-12] MEDS ORDERED: ONDANSETRON INJ 2 MG/ML 2 ML VIAL IV PRN ×2 (13:08→19:16)
[2021-11-12] MEDS ORDERED: ePHEDrine sulfate 50 MG/ML AMP IV PRN ×2 (13:08→19:16)
--- NOTE | 2021-11-12 13:10 | Anesthesiology Consultation ---
Date of Service November 12, 2021 Assessment & Plan Chart Review Chart Review: Patient NOT seen in Pre Admission Testing and Acceptable Risk for Labor Epidural Consults Requested none ASA ASA2 Proposed Anesthesia Anesthesia Type: Labor Epidural Risk / Benefits Reviewed With: PT / POA / Parent / Guardian, Accepts Plan and Informed Consent Obtained History Height/Weight Height: 5 ft 2 in Weight: 66.224 kg Allergies Allergy/AdvReac Type Severity Reaction Status Date / Time adhesive Allergy Mild rash with Verified 11/12/21 09:00 bandaids Penicillins Allergy Mild RASH A Verified 11/12/21 09:00 BABY Medications Home Medications Medication Instructions Recorded Confirmed Last Taken prenat.vits,chinmay,owa-vmnt-npihv 1 tab PO HS 03/12/19 11/12/21 11/02/21 Active Medications Generic Name Dose Route Start Last Admin Trade Name Freq PRN Reason Stop Dose Admin Lactated Ringer's 1,000 mls @ 125 mls/hr 11/12/21 07:52 11/12/21 12:44 Lr IV 11/14/21 07:51 125 mls/hr .Q8H PRN Administration L&D Protocol Protocol Oxytocin 30 units in 500 mls @ 10 mls/hr 11/12/21 09:39 11/12/21 12:00 Pitocin IV 11/14/21 09:38 0.6 units/hr .Q24H PRN 10 mls/hr Labor Induction/Augmentation Titration Protocol 0.6 UNITS/HR Past Medical History Medical History Acid reflux Blighted ovum Encounter for pre-operative examination size inconsistent with dates History of angular cheilitis History of breast lump History of melanoma Exercise / Class Metabolic Activity II 4-5 Yardwork/Stairs/Walk up hill Past Family History Family History Mother Diabetes delivery Grandfather (Maternal) Leukemia Brother Dysrhythmia Other No family history of adverse response to anesthesia Denies family history of Ovarian cancer Prostate cancer Crohn's disease Myocardial infarction Breast cancer Colorectal cancer Past Surgical History Surgical History History of dilation and curettage History of esophagogastroduodenoscopy (EGD) x2 S/P wisdom tooth extraction Status post Mohs surgery right ear, 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 Past Anesthesia History No Hx of Anesthesia Complications and No Family Hx of Anesthesia Complications History of PONV No Hx of PONV and No Hx of Motion Sickness Social History Smoking Status: Never smoker Hx Alcohol Use: No Hx Substance Use: No substance use type: does not use Physical Exam Vital Signs Last Vital Signs Temp 36.5 C 11/12/21 11:02 Pulse 83 11/12/21 13:09 Resp 20 11/12/21 12:01 BP 110/59 L 11/12/21 13:09 Pulse Ox 98 11/12/21 13:07 ENMT Mouth: no dentition abnormality Thyromental Distance: > or= 3.5 Finger Breadths Mallampati Class: II Neck normal visual inspection Respiratory normal respiratory effort Auscultation: lungs clear to auscultation bilaterally Cardiovascular Rate/Rhythm: regular rate and regular rhythm Psychiatric Orientation: alert Testing Laboratory Results 11/12/21 08:20
--- NOTE | 2021-11-12 13:44 | Labor Progress Brief Note ---
Date of Service November 12, 2021 Subjective comfortable after epidural Assessment & Plan (1) 40 weeks gestation of : Plan: doing will, continue current management. fetus category one. anticipate . Admission and Anticipated Discharge Date Admission Date: November 12, 2021 Physical Exam Physical Exam: cx--6/80/-2 arom--copious clear toco--q2-3min, pit at 10 efm--130s with mod variability, accels to 160s, +scalp stim, no decels Results & Data ([facility]) Vital Signs (Past 12 Hours) Vital Signs Temp Pulse Resp BP Pulse Ox 11/12/21 13:37 107 H 98 11/12/21 13:32 77 96/53 L 98 11/12/21 13:27 92 H 97 11/12/21 13:22 104 H 97 11/12/21 13:17 84 98 11/12/21 13:13 82 95/53 L 11/12/21 13:12 86 98 11/12/21 13:09 83 110/59 L 11/12/21 13:07 80 98 11/12/21 13:02 89 99 11/12/21 13:01 94 H 104/59 L 11/12/21 12:59 90 105/58 L 11/12/21 12:57 83 113/59 L 99 11/12/21 12:55 90 112/63 11/12/21 12:52 91 H 99 11/12/21 12:47 120 H 100 11/12/21 12:42 103 H 100 11/12/21 12:02 82 109/65 11/12/21 12:01 20 11/12/21 11:02 36.5 C 87 20 113/67 11/12/21 09:55 94 H 116/71 11/12/21 08:23 36.6 C 96 H 20 138/66 11/12/21 08:07 96 H 138/66 Coding Level of Care Code None Diagnoses 40 weeks gestation of Z3A.40
--- NOTE | 2021-11-12 15:10 | Labor Progress Brief Note ---
Date of Service November 12, 2021 Subjective comfortable with epidural. ctsp because of variables with contractions since rupture. Assessment & Plan (1) 40 weeks gestation of : (2) Antepartum variable deceleration: Plan: Starting to look better. Will continue to monitor closely. Have discussed the situation in detail with the patient and her . Discussed that if these deep variables persist, will likely need to proceed with c/s delivery. I have tried everything within my power to make these better. They understand that still remote from delivery at 7cm. They express understanding of the potentials of the situation. discussed that if contractions spaced and not strong enough, may need to reconsider pitocin if appropriate for the baby. Admission and Anticipated Discharge Date Admission Date: November 12, 2021 Physical Exam Physical Exam: cx--now /-1 toco--q2-4, pit now off, contractions have spaced a bit efm--now 115-120 with mod variability, initially had deep variables with contractions to the 50s tried multiple methods--position changed, knee chest, pit now off, iupc and fse placed, amnioinfusion started now baseline 120s wtih mod variability, baby attempting accels throughout, now having variables with just some contractions, now variables much smaller to 90- 100, small accels Results & Data ([facility]) Vital Signs (Past 12 Hours) Vital Signs Temp Pulse Resp BP Pulse Ox 11/12/21 14:57 93 H 98 11/12/21 14:52 97 H 99 11/12/21 14:47 102 H 131/64 100 11/12/21 14:46 36.7 C 11/12/21 14:42 105 H 100 11/12/21 14:37 86 100 11/12/21 14:32 91 H 135/71 98 11/12/21 14:27 96 H 99 11/12/21 14:22 120 H 99 11/12/21 14:19 36.8 C 11/12/21 14:17 84 115/70 100 11/12/21 14:12 104 H 99 11/12/21 14:07 96 H 98 11/12/21 14:03 82 113/73 11/12/21 14:02 92 H 97 11/12/21 13:57 81 97 11/12/21 13:52 111 H 99 11/12/21 13:47 127 H 116/61 99 11/12/21 13:42 113 H 98 11/12/21 13:37 107 H 98 11/12/21 13:32 77 96/53 L 98 11/12/21 13:27 92 H 97 11/12/21 13:22 104 H 97 11/12/21 13:17 84 98 11/12/21 13:13 82 95/53 L 11/12/21 13:12 86 98 11/12/21 13:09 83 110/59 L 11/12/21 13:07 80 98 11/12/21 13:02 89 99 11/12/21 13:01 94 H 104/59 L 11/12/21 12:59 90 105/58 L 11/12/21 12:57 83 113/59 L 99 11/12/21 12:55 90 112/63 11/12/21 12:52 91 H 99 11/12/21 12:47 120 H 100 11/12/21 12:42 103 H 100 11/12/21 12:02 82 109/65 11/12/21 12:01 20 11/12/21 11:02 36.5 C 87 20 113/67 11/12/21 09:55 94 H 116/71 11/12/21 08:23 36.6 C 96 H 20 138/66 11/12/21 08:07 96 H 138/66 Coding Level of Care Code None Diagnoses 40 weeks gestation of Z3A.40 Antepartum variable deceleration O36.8390
--- NOTE | 2021-11-12 15:11 | Communication Note ---
Date of Service: November 12, 2021 not improving. Have tried amnio infusion, multiple position changes, and pit off. chervix unchanged. Plan to proceed with c/s.
[2021-11-12] MEDS ORDERED: CITRIC ACID/SODIUM CITRATE 15 ML UDC ONE (15:13)
[2021-11-12] MEDS ORDERED: ceFAZolin 2000MG 2,000 MG/15 ML SYR IV SCH (15:15)
[2021-11-12] MEDS ORDERED: LIDOCAINE 2%/EPINEPHRINE 1:200,000 20 ML SDV ONE (15:17)
--- NOTE | 2021-11-12 15:44 | Communication Note ---
Date of Service: November 12, 2021 c section called for intolerance to labor. epidural working well. will plan to dose epidural with 2% lidocaine + epi, post op pain with duramorph. Discussed this with patient and answered questions.
[2021-11-12] MEDS ORDERED: ONDANSETRON INJ 2 MG/ML 2 ML VIAL ONE (15:56)
[2021-11-12] MEDS ORDERED: KETOROLAC 30 MG/ML VIAL ONE (15:57)
[2021-11-12] MEDS ORDERED: OXYTOCIN 10 UNITS/ML 10ML VIAL ONE (15:57)
[2021-11-12] MEDS ORDERED: MoRPHine SULFATE PF 1 MG/ML 10 ML AMP/VIAL ONE (15:57)
--- NOTE | 2021-11-12 16:19 | Operative Report ---
PG Post Operative Report Pre & Post Diagnosis Operation Date: 11/12/21 15:15 <No data on this case meets the specified criteria> Preop Dx--iup at 40 6/7 persistent deep variable decels Postop Dx--same double nuchal cord with minimal Claudia's jelly succinturate lobe of the placenta I identified the patient and participated in the time-out.: Yes Procedure Operation Date: 11/12/21 15:15 <No data on this case meets the specified criteria> Primary low transverse c/s Surgeon Rossi Bernstein MD, FACOG Unarmed Security Guard Roxann Mireles, PGY1 Estimated Blood Loss 600 Findings Consistent with Post-Op Diagnosis viable male infant with apgars of 8/9, double nuchal and body cord, minimal Walker's jelly of cord Fluids 1000cc Specimens cord blood Drains marques Anesthesia Type Labor Epidural Complications none Disposition Accompanied Patient To Recovery: Yes Disposition: L&D Indications Patient is a 35yowf with induction for postdates. Underwent pitocin induction and epidural and then at 6cm had arom for copious clear fluid. Unfortunately had immediate , deep variables with contractions. Multiple attempts to correct with d/c pit, position change and amnioinfusion unsuccessful. Contractions spaced with pit off and was not progressing. Description of Procedure The patient was taken to the operating room where she was identified verbally and by bracelet. She was seated on the operating table where her epidural anesthetic was dosed. She was then placed in the supine position with a leftward tilt. A Marques catheter was placed sterilely prior to the or. the patient was prepped and draped in a normal standard fashion. the anesthetic was tested and found to be adequate. A time-out was held, identifying correct patient, procedure, positioning and preoperative antibiotics. There were no concerns. A Pfannenstiel skin incision was made with a knife and taken down to the underlying layer of fascia with the knife and Bovie electrocautery. Bleeding was attended to with the Bovie. The fascia was incised in the midline with the knife and taken out laterally with scissors. The superior edge of the fascial incision was grasped, elevated and the underlying layer of rectus muscle was taken off bluntly and with scissors. In a similar fashion, the inferior edge of the fascial incision was grasped, elevated and the underlying layer of rectus muscle was taken off bluntly and with scissors. The muscles were bluntly in the midline. The peritoneum was entered bluntly. The incision was then stretched. The bladder blade was placed. The vesicouterine peritoneum was identified, entered with scissors and taken out laterally with scissors. The bladder flap was created digitally A hysterotomy incision was scored with a knife and the incision was stretched superiorly and inferiorly with the two needle machine operator's fingers. The operators hand was placed into the incision and the head was delivered atraumatically. No nuchal cord. The nose and mouth were bulb suctioned. the rest of the was then delivered without difficulty. The nose and mouth were again bulb suctioned. The cord was clamped and cut and the was then handed off to the awaiting icu staff nurse for drying and attention. Cord blood and segment were obtained. The placenta was Manually extracted. The uterus was exteriorized and cleared of all clot and debris with moistened laparotomy sponges. The hysterotomy incision was repaired in two layers, the first in a running locked layer, the second in an imbricating layer. Hemostasis was noted to be good. Posterior cul-de-sac was irrigated and cleared of all clot and debris. The hysterotomy incision was again inspected and found to be hemostatic. the uterus was reinteriorized. Hysterotomy incision was again inspected and needed two figure of 8 stitches and found to be hemostatic. Rectus muscles were reapproximated with several interrupted stitches of 0 Vicryl. The fascia was then reapproximated with 0 Vicryl starting at the edges and meeting in the midline. The subcuticular tissues were copiously irrigated and bleeding was attended to with cautery. The skin was then closed with 4-0 Vicryl in a subcuticular fashion. All sponge, lap and needle counts were correct x 2. The patient was taken to the recovery room in stable condition. I attest to the content of the Intraoperative Record and any orders documented therein. Any exceptions are noted below.
[2021-11-12] MEDS ORDERED: DIPHTHERIA/TETANUS/PERTUSSIS 0.5 ML SYR/VIAL IM ONE (16:22)
[2021-11-12] MEDS ORDERED: SENNA 8.6 MG TAB PO PRN (16:22)
[2021-11-12] MEDS ORDERED: BENZOCAINE 20% AER SPR 82.5 GM CAN EXT PRN (16:22)
[2021-11-12] MEDS ORDERED: MAGNESIUM HYDROXIDE SUSP 30 ML UDC PO PRN (16:22)
[2021-11-12] MEDS ORDERED: ACETAMINOPHEN 325 MG TAB PO PRN (16:22)
[2021-11-12] MEDS ORDERED: HYDROCORTISONE ACETATE 25 MG SUPP PR PRN (16:22)
--- NOTE | 2021-11-12 16:34 | Anesthesia Procedure Note ---
Date of Service November 12, 2021 Anesthesia Post Epidural Note Vital Signs Vital Signs: Temp Pulse Resp BP Pulse Ox 36.5 C 75 20 93/52 L 97 11/12/21 16:15 11/12/21 16:29 11/12/21 16:25 11/12/21 16:25 11/12/21 16:29 Notes Mental Status: alert / awake / arousable Nausea / Vomiting: adequately controlled Pain: adequately controlled Airway Patency, RR, SpO2: stable & adequate BP & HR: stable & adequate Hydration State: stable & adequate Neuraxial Anesthesia: was administered and sensory block is resolving Anesthetic Complications: no major complications apparent and Pt Satisfied with anesthetic care Epidural: Removed without complications and With tip intact
--- NOTE | 2021-11-12 16:34 | Anesthesiology Progress Note ---
Date of Service November 12, 2021 Anesthesia Post Procedure Vital Signs Vital Signs: Temp Pulse Resp BP Pulse Ox 11/12/21 16:29 75 97 11/12/21 16:25 74 20 93/52 L 11/12/21 16:24 74 97 11/12/21 16:23 77 92 11/12/21 16:19 77 98 11/12/21 16:15 36.5 C 81 20 123/59 L 11/12/21 16:14 83 97 11/12/21 15:18 109 H 95 11/12/21 15:16 118 H 121/70 11/12/21 15:13 192 H 97 11/12/21 15:07 104 H 99 11/12/21 15:02 94 H 127/69 99 11/12/21 14:57 93 H 98 11/12/21 14:52 97 H 99 11/12/21 14:47 102 H 131/64 100 11/12/21 14:46 36.7 C 11/12/21 14:42 105 H 100 11/12/21 14:37 86 100 11/12/21 14:32 91 H 135/71 98 11/12/21 14:27 96 H 99 11/12/21 14:22 120 H 99 11/12/21 14:19 36.8 C 11/12/21 14:17 84 115/70 100 11/12/21 14:12 104 H 99 11/12/21 14:07 96 H 98 11/12/21 14:03 82 113/73 11/12/21 14:02 92 H 97 11/12/21 13:57 81 97 11/12/21 13:52 111 H 99 11/12/21 13:47 127 H 116/61 99 11/12/21 13:42 113 H 98 11/12/21 13:37 107 H 98 11/12/21 13:32 77 96/53 L 98 11/12/21 13:27 92 H 97 11/12/21 13:22 104 H 97 11/12/21 13:17 84 98 11/12/21 13:13 82 95/53 L 11/12/21 13:12 86 98 11/12/21 13:09 83 110/59 L 11/12/21 13:07 80 98 11/12/21 13:02 89 99 11/12/21 13:01 94 H 104/59 L 11/12/21 12:59 90 105/58 L 11/12/21 12:57 83 113/59 L 99 11/12/21 12:55 90 112/63 11/12/21 12:52 91 H 99 11/12/21 12:47 120 H 100 11/12/21 12:42 103 H 100 11/12/21 12:02 82 109/65 11/12/21 12:01 20 11/12/21 11:02 36.5 C 87 20 113/67 11/12/21 09:55 94 H 116/71 11/12/21 08:23 36.6 C 96 H 20 138/66 11/12/21 08:07 96 H 138/66 Transfer of Care Handoff Completed per policy Notes Mental Status: alert / awake / arousable Nausea / Vomiting: adequately controlled Pain: adequately controlled Airway Patency, RR, SpO2: stable & adequate BP & HR: stable & adequate Hydration State: stable & adequate Neuraxial Anesthesia: was administered and sensory block is resolving Anesthetic Complications: no major complications apparent
[2021-11-12 16:35] LABS: Base Excess Cord Arterial Bld -2.5 mEq/L (-9-1.8); CO2 Cord Arterial Blood 71 mmHg (39.1-73.5); HCO3 Cord Arterial Blood 28 mmol/L (19.7-28.5); pH Cord Arterial Blood 7.21 (7.1-7.38)
[2021-11-12 16:45] LABS: Oxygen Sat Cord Arterial Blood < 60.0 % (<60); PO2 Cord Arterial Blood < 10 mmHg (4.1-31.7)
[2021-11-12 16:46] LABS: Base Excess Cord Venous Blood -1.9 mEq/L (-7.7-1.9); Cord Venous Blood HCO3 24 mmol/L (18.4-26.8); Cord Venous Blood PCO2 44 mmHg (30.4-57.2); Cord Venous Blood PO2 30 mmHg (14.1-43.3); Cord Venous Blood pH 7.35 (7.20-7.44)
[2021-11-12] MEDS: OXYTOCIN 20 UNITS in LACTATED RINGER'S 1,000 ML IV SCH (18:40)
[2021-11-12] MEDS ORDERED: MoRPHine SULFATE 2 MG/ML CARP IV PRN (19:16)
[2021-11-12] MEDS ORDERED: MoRPHine SULFATE PF 1 MG/ML 10 ML AMP/VIAL INT SPINAL ONE (19:16)
[2021-11-12] MEDS ORDERED: NALOXONE HCL 0.08 MG in SYRINGE 1.8 ML IV PRN (19:16)
[2021-11-12] MEDS ORDERED: HYDROmorphone INJ 0.5 MG/0.5 ML SYR IV PRN (19:16)
[2021-11-12] MEDS ORDERED: MEPERIDINE HCL 25 MG/ML CARP/VIAL IV PRN (19:16)
[2021-11-12] MEDS ORDERED: LACTATED RINGER'S 500 ML IV PRN (19:16)
[2021-11-12] MEDS ORDERED: DC INTRASPINAL MORPHINE SCH (19:30)
[2021-11-12] MEDS ORDERED: SODIUM CHLORIDE 0.9% 1000ML 1,000 ML IV SCH (19:30)
[2021-11-12] MEDS ORDERED: NO NARCOTICS OR SEDATIVES SCH (19:30)
--- NOTE | 2021-11-12 20:02 | Obstetrical Progress Note ---
Date of Service November 12, 2021 Assessment & Plan (1) S/P section: comfortable, vss, no evidence of acute bleeding. Reassured. REdress and sandbag. Subjective ctsp because of dressing. Noted by nursing to be "40% saturated". Patient resting comfortably in bed. Does not complain of pain Physical Exam abd soft, uterus firm/appr tender 1cm above u. Dressing removed. Telfa saturated, dressing with red blood. palpation of the incision does not ilicit significant bleeding. vss Results & Data ([facility]) Vital Signs (Past 12 Hours) Vital Signs Temp Pulse Resp BP Pulse Ox 11/12/21 18:35 96 H 132/70 11/12/21 18:34 92 H 99 11/12/21 18:29 95 H 97 11/12/21 18:25 97 H 123/60 11/12/21 18:24 96 H 98 11/12/21 18:19 90 98 11/12/21 18:16 90 127/60 11/12/21 18:15 36.6 C 20 11/12/21 18:14 101 H 98 11/12/21 18:09 100 H 100 11/12/21 18:05 97 H 108/62 89 L 11/12/21 18:04 89 97 11/12/21 17:59 90 99 11/12/21 17:55 85 110/64 11/12/21 17:54 86 97 11/12/21 17:49 89 97 11/12/21 17:45 95 H 20 112/63 11/12/21 17:44 102 H 98 11/12/21 17:39 92 H 97 11/12/21 17:35 98 H 103/56 L 11/12/21 17:34 93 H 96 11/12/21 17:33 20 11/12/21 17:29 93 H 96 11/12/21 17:25 100 H 104/58 L 11/12/21 17:24 94 H 96 11/12/21 17:19 99 H 96 11/12/21 17:15 95 H 103/55 L 11/12/21 17:14 94 H 96 11/12/21 17:09 105 H 96 11/12/21 17:05 97 H 20 96/51 L 11/12/21 17:04 93 H 96 11/12/21 16:59 101 H 96 11/12/21 16:55 87 20 91/54 L 11/12/21 16:54 96 H 95 11/12/21 16:49 85 96 11/12/21 16:45 82 20 97/55 L 11/12/21 16:44 80 96 11/12/21 16:39 79 97 11/12/21 16:35 73 20 94/51 L 11/12/21 16:34 74 95 11/12/21 16:29 75 97 11/12/21 16:25 74 20 93/52 L 11/12/21 16:24 74 97 11/12/21 16:23 77 92 11/12/21 16:19 77 98 11/12/21 16:15 36.5 C 81 20 123/59 L 11/12/21 16:14 83 97 11/12/21 15:18 109 H 95 11/12/21 15:16 118 H 121/70 11/12/21 15:13 192 H 97 11/12/21 15:07 104 H 99 11/12/21 15:02 94 H 127/69 99 11/12/21 14:57 93 H 98 11/12/21 14:52 97 H 99 11/12/21 14:47 102 H 131/64 100 11/12/21 14:46 36.7 C 11/12/21 14:42 105 H 100 11/12/21 14:37 86 100 11/12/21 14:32 91 H 135/71 98 11/12/21 14:27 96 H 99 11/12/21 14:22 120 H 99 11/12/21 14:19 36.8 C 11/12/21 14:17 84 115/70 100 11/12/21 14:12 104 H 99 11/12/21 14:07 96 H 98 11/12/21 14:03 82 113/73 11/12/21 14:02 92 H 97 11/12/21 13:57 81 97 11/12/21 13:52 111 H 99 11/12/21 13:47 127 H 116/61 99 11/12/21 13:42 113 H 98 11/12/21 13:37 107 H 98 11/12/21 13:32 77 96/53 L 98 11/12/21 13:27 92 H 97 11/12/21 13:22 104 H 97 11/12/21 13:17 84 98 11/12/21 13:13 82 95/53 L 11/12/21 13:12 86 98 11/12/21 13:09 83 110/59 L 11/12/21 13:07 80 98 11/12/21 13:02 89 99 11/12/21 13:01 94 H 104/59 L 11/12/21 12:59 90 105/58 L 11/12/21 12:57 83 113/59 L 99 11/12/21 12:55 90 112/63 11/12/21 12:52 91 H 99 11/12/21 12:47 120 H 100 11/12/21 12:42 103 H 100 11/12/21 12:02 82 109/65 11/12/21 12:01 20 11/12/21 11:02 36.5 C 87 20 113/67 11/12/21 09:55 94 H 116/71 11/12/21 08:23 36.6 C 96 H 20 138/66 11/12/21 08:07 96 H 138/66
[2021-11-12] MEDS: diphenhydrAMINE 50 MG/ML VIAL IV PRN (20:42)
[2021-11-12] MEDS: DOCUSATE SODIUM 100 MG CAP PO SCH (20:47)
[2021-11-12] MEDS: SIMETHICONE 80 MG CHEW PO SCH (20:47)
[2021-11-12] MEDS: KETOROLAC 30 MG/ML VIAL IV PRN (21:39)
[2021-11-13] MEDS: OXYTOCIN 20 UNITS in LACTATED RINGER'S 1,000 ML IV SCH (02:43)
[2021-11-13] MEDS: diphenhydrAMINE 50 MG/ML VIAL IV PRN (05:37)
--- NOTE | 2021-11-13 06:50 | Obstetrical Progress Note ---
Date of Service <Roxann ChiDO - Last Filed: 11/13/21 07:27> November 13, 2021 Assessment & Plan <Roxanncorazon Mireles DO - Last Filed: 11/13/21 07:27> (1) S/P section: (2) Encounter for care and examination after delivery: 35] yo post op day1 from c/s, doing well. -Continue routine post care. -vital signs reviewed and WNL (Tmax 37.1) -Blood Type O+, GBS-, Rubella immune -Encourage ambulation, monitor and control pain with Motrin, tylenol PRN, resume regular diet, monitor lochia -encourage breast feeding -hemoglobin 12.4 Day #:: 1 <Rossi Bernstein MD, FACOG - Last Filed: 11/13/21 07:45> (1) S/P section: (2) Encounter for care and examination after delivery: Subjective <Roxann Mireles DO - Last Filed: 11/13/21 07:27> Ambulation: limited ambulation (has not tried yet) Voiding: marques catheter in place Passing Gas:: No Diet Tolerance:: clear liquids Lochia:: Small Feeding Type:: breast feeding Current Pain Level(1-10): 1 Review of Systems Negative fever chills Negative headache dizziness Negative chest pain palpitations SOB Negative nausea vomitting diarrhea constipation Negative numbness tingling rash swelling Physical Exam <Roxann ChiDO - Last Filed: 11/13/21 07:27> General: Alert, oriented. No acute distress. Cardiac: Regular rate and rhythm, no murmurs/rubs/gallops. Respiratory: Clear to auscultation bilaterally a/p, no wheezes/rales/rhonchi. No increased work of breathing. Symmetrical chest rise. No respiratory distress. Abdomen: Soft, nontender, nondistended. Bowel sounds present. Uterus: Uterine fundus firm, palpable at umbilicus. Surgical scar clean and healing well. Lower Extremities: No lower extremity edema or swelling. No deep calf pain. Vick's negative bilaterally. Results & Data ([facility]) <Roxann Mireles DO - Last Filed: 11/13/21 07:27> Vital Signs (Past 12 Hours) Vital Signs Temp Pulse Resp BP Pulse Ox 11/13/21 06:25 20 98 11/13/21 05:36 16 97 11/13/21 04:30 20 97 11/13/21 03:10 36.9 C 84 16 103/63 95 11/13/21 02:43 18 96 11/13/21 01:36 18 96 11/13/21 00:00 20 96 11/12/21 23:35 37.3 C 90 18 107/66 96 11/12/21 22:30 16 96 11/12/21 21:40 16 96 11/12/21 20:30 16 97 11/12/21 19:30 37.0 C 92 H 18 116/70 98 <Rossi Bernstein MD, FACOG - Last Filed: 11/13/21 07:45> Co-Signing Physician Notes Resident Physician Supervision Note: I was present with Dr. Mireles during the history and exam. I discussed the case with the resident and agree with the findings and plan as documented in the note. Any exceptions or clarifications are listed here: Doing well. Dressing this am is clean. Pain controlled. Routine POD 1. Postop hgb is 9.3 consistent with surgery. Documented By: Rossi Bernstein MD, FACOG Resident Activity Tracking <Roxann Mireles, - Last Filed: 11/13/21 07:27> Resident Involvement: Resident Care Provided Care Provided: Adult Hospital Medicine and OB Delivery
[2021-11-13 06:53] LABS: Basophils # (auto) 0.01 K/uL (0-0.2); Basophils % (auto) 0.1 %; Eosinophils # (auto) 0.04 K/uL (0-0.5); Eosinophils % (auto) 0.4 %; Hematocrit (blood only) 27.2 % (37-47); Hemoglobin 9.3 g/dL (12.0-16.0); Immature Granulocytes # (auto) 0.02 K/uL (0.00-0.02); Immature Granulocytes % (auto) 0.2 %; Lymphocytes # (auto) 1.89 K/uL (1.2-3.4); Mean Corpuscular Hemoglobin 32.1 pg (25-34); Mean Corpuscular Hgb Conc 34.2 g/dL (32-36); Mean Corpuscular Volume 93.8 fL (80-100); Mean Platelet Volume 10.3 fL (7.4-10.4); Monocytes # (auto) 1.12 K/uL (0.11-0.59); Monocytes % (auto) 10.7 %; Neutrophils # (auto) 7.42 K/uL (1.4-6.5); Neutrophils % (auto) 70.6 %; Platelet Count 160 K/uL (130-400); RDW Coefficient of Variation 14.2 % (11.5-14.5); RDW Standard Deviation 48.6 fL (36.4-46.3)
[2021-11-13] MEDS: PANTOprazole 40 MG TAB PO SCH (07:40)
[2021-11-13] MEDS: SIMETHICONE 80 MG CHEW PO SCH ×3 (08:18→20:55)
[2021-11-13] MEDS: PRENATAL VITAMIN 1 TAB PO SCH (08:18)
[2021-11-13] MEDS: KETOROLAC 30 MG/ML VIAL IV PRN (08:18)
[2021-11-13] MEDS: DOCUSATE SODIUM 100 MG CAP PO SCH ×2 (08:18→20:55)
[2021-11-13] MEDS: FERROUS SULFATE 325 MG TAB PO SCH (08:18)
[2021-11-13] MEDS: IBUPROFEN 600 MG TAB PO PRN ×3 (11:52→22:32)
[2021-11-13] MEDS ORDERED: diphenhydrAMINE Capsule 25 MG CAP PO PRN (13:16)
[2021-11-13] MEDS ORDERED: diphenhydrAMINE 50 MG/ML VIAL IV PRN (13:16)
[2021-11-13] MEDS ORDERED: PROMETHAZINE HCL 25 MG in SODIUM CHLORIDE 0.9% 50 ML IV PRN (13:16)
[2021-11-13] MEDS ORDERED: ONDANSETRON INJ 2 MG/ML 2 ML VIAL IV PRN (13:16)
[2021-11-13] MEDS ORDERED: oxyCODONE/ACETAMINOPHEN 5mg/325mg TAB PO PRN (13:16)
[2021-11-13] MEDS ORDERED: bisacodyL 5 MG TABEC PO SCH (20:00)
[2021-11-14] MEDS: IBUPROFEN 600 MG TAB PO PRN ×2 (03:22→07:45)
[2021-11-14 06:46] LABS: Hematocrit (blood only) 30.2 % (37-47); Hemoglobin 9.9 g/dL (12.0-16.0)
[2021-11-14] MEDS ORDERED: ACETAMINOPHEN 325 MG TAB PO PRN (07:27)
--- NOTE | 2021-11-14 07:30 | Obstetrical Progress Note ---
Date of Service <Roxann ChiDO - Last Filed: 11/14/21 07:29> November 14, 2021 Assessment & Plan <Roxann ChiDO - Last Filed: 11/14/21 07:29> (1) S/P section: (2) Encounter for care and examination after delivery: 35 yo post op day2 from c/s, doing well. -Continue routine post care. -vital signs reviewed and WNL (Tmax 37.1) -Blood Type O+, GBS-, Rubella immune -Encourage ambulation, monitor and control pain with Motrin, tylenol PRN, resume regular diet, monitor lochia -encourage breast feeding -hemoglobin 9.9 Day #:: 2 <Claire Cazares MD, FACOG - Last Filed: 11/14/21 07:42> (1) S/P section: (2) Encounter for care and examination after delivery: Subjective <Roxann Mireles DO - Last Filed: 11/14/21 07:29> Ambulation: ambulating normally (has not tried yet) Voiding: no voiding problems Passing Gas:: Yes Diet Tolerance:: regular diet Lochia:: Small Feeding Type:: breast feeding Current Pain Level(1-10): 0 Review of Systems Negative fever chills Negative headache dizziness Negative chest pain palpitations SOB Negative nausea vomitting diarrhea constipation Negative numbness tingling rash swelling Physical Exam <Roxann ChiDO - Last Filed: 11/14/21 07:29> General: Alert, oriented. No acute distress. Cardiac: Regular rate and rhythm, no murmurs/rubs/gallops. Respiratory: Clear to auscultation bilaterally a/p, no wheezes/rales/rhonchi. No increased work of breathing. Symmetrical chest rise. No respiratory distress. Abdomen: Soft, nontender, nondistended. Bowel sounds present. Uterus: Uterine fundus firm, palpable at umbilicus. Surgical scar clean and healing well. Lower Extremities: No lower extremity edema or swelling. No deep calf pain. Vick's negative bilaterally. Results & Data ([facility]) <Roxanncorazon Mireles DO - Last Filed: 11/14/21 07:29> Vital Signs (Past 12 Hours) Vital Signs Temp Pulse Resp BP 11/14/21 00:00 37.1 C 83 18 102/64 <Claire Czaares MD, FACOG - Last Filed: 11/14/21 07:42> Co-Signing Physician Notes Resident Physician Supervision Note: I was present with Dr. Mireles during the history and exam. I discussed the case with the resident and agree with the findings and plan as documented in the note. Any exceptions or clarifications are listed here: [None] Documented By: Claire Cazares MD, FACOG Resident Activity Tracking <Roxann Mireles DO - Last Filed: 11/14/21 07:29> Resident Involvement: Resident Care Provided Care Provided: Adult Hospital Medicine and OB Delivery
[2021-11-14] MEDS: PANTOprazole 40 MG TAB PO SCH (07:34)
[2021-11-14] MEDS: SIMETHICONE 80 MG CHEW PO SCH (07:35)
[2021-11-14] MEDS: DOCUSATE SODIUM 100 MG CAP PO SCH (07:35)
[2021-11-14] MEDS: FERROUS SULFATE 325 MG TAB PO SCH (07:35)
[2021-11-14] MEDS: PRENATAL VITAMIN 1 TAB PO SCH (07:35)
[2021-11-14] MEDS ORDERED: guaiFENesin 600 MG TABCR PO SCH (09:00)
[2021-11-14] MEDS ORDERED: bisacodyL 10 MG SUPP PR PRN (15:58)
--- NOTE | 2021-11-16 21:54 | Discharge Summary (DS) ---
ADMISSION DIAGNOSIS: Intrauterine at 40 and 6/7 weeks, who presents for post-dates induction. DISCHARGE DIAGNOSES: 1. Intrauterine at 40 and 6/7 weeks, who presents for post-dates induction. 2. Nonreassuring heart testing. PROCEDURES: Primary low transverse section. HISTORY: The patient is a 35-year-old white female, 2, para 1-0-1-1 with an intrauterine at 40 and 6/7 weeks who presents to labor and delivery for induction of labor for postdates. She notes good movement, no leakage of fluid, vaginal bleeding, occasional contractions. The has been uncomplicated. Spouse has a bicuspid aortic valve. echo was normal. For the rest of the patient's detailed history and physical, please see her dictated history and physical. ASSESSMENT: Plan induction with Pitocin. AROM as indicated. epidural on demand. HOSPITAL COURSE: The patient was admitted. She underwent Pitocin for induction. She was GBS negative. She got an epidural and was comfortable and then she underwent an amniotomy for copious amounts of clear fluid. This was when she was 6, 80 and -2. Unfortunately, after that the baby started having variables that were not responsive to position change, turning off the Pitocin or amnioinfusion. She was only 7 cm at that time. Given the remoteness from delivery, decision was made to proceed with . The patient underwent a primary low transverse section without difficulty. Findings at the time of surgery revealed a double nuchal cord with minimum Graff's jelly and a succenturiate lobe of the placenta. Estimated blood loss was 600 mL. The patient's postoperative course was uncomplicated. She tolerated a regular diet, ambulated without difficulty, voided after the removal of her Bell catheter, and had her pain well controlled on oral pain medications. Her discharge H and H was 9.9 and 30.2. The patient was discharged home to follow up for routine postoperative care in 6 weeks and to call with any concerns. Job ID: [id number] [facility]ITALGen[facility]
== END 2021-11-14 11:15 | disposition home or self-care (01) | DRG 788 ==
LOC: 4S1 07:47 → 4E2 19:15
DX: O76 Abnormality in fetal heart rate and rhythm complicating labor and delivery; Z37.0 Single live birth; Z88.0 Allergy status to penicillin; Z3A.40 40 weeks gestation of pregnancy; O69.89X0 Labor and delivery complicated by other cord complications, not applicable or unspecified; O99.613 Diseases of the digestive system complicating pregnancy, third trimester; O69.81X0 Labor and delivery complicated by cord around neck, without compression, not applicable or unspecified; K21.9 Gastro-esophageal reflux disease without esophagitis; O48.0 Post-term pregnancy; Z91.048 Other nonmedicinal substance allergy status

== ENCOUNTER 2023-06-19 09:08 | Inpatient (IN) ==
[2023-06-19] MEDS ORDERED: OXYTOCIN 30 UNITS/NSS 30 UNITS/500 ML BAG IV PRN ×2 (09:38→17:34)
[2023-06-19] MEDS ORDERED: LIDOCAINE 1% LOCAL 20 ML VIAL INFIL PRN (09:38)
--- NOTE | 2023-06-19 10:05 | History & Physical Report ---
Date of Service June 19, 2023 Assessment & Plan (1) Previous delivery affecting , antepartum: Plan: Diana is a 37-year-old G4, P2 currently at 39 weeks 3 days gestational age presents for trial of labor after section as noted per HPI. 1. Fetus: Cat 1 2. Labor: No formal cervix and we will plan for AROM as the primary induction method. If unsuccessful in initiating labor we will start oxytocin 3. GBS negative 4. Vitals WNL 5. A2gDM: We will continue with routine blood glucose eval 6. TOLAC: Risks of trial of labor/ reviewed. consent form reviewed and signed. Discussed absolute risks and relative risks of including increased risk associated with induction of labor (2) Uterine synechiae: (3) Encounter for supervision of normal in multigravida, antepartum: (4) AMA (advanced maternal age) primigravida 35+: (5) Insulin controlled gestational diabetes mellitus (GDM) during : History of Present Illness Primary Care Provider: SUNDAR Toribio Diana is a 37-year-old G4, P2 currently at 39 weeks 3 days gestational age presents for induction of labor. Of note patient has a prior secondary to intolerance of labor. She has had 1 successful vaginal delivery with her first which was uncomplicated. We discussed the risks of in detail including the risk of uterine rupture. We discussed the increased risk associated with an induction of labor versus spontaneous labor. consent form reviewed and signed. Spouse has Bicuspid Aortic Valve * echo [id number] 03/25/23 - WNL Previous Section affecting *Ok to C/S SCHEDULED FOR 06/30/[address] TODD TREVIZO > 35 -weekly NST at 36 wks Uterine synechiae MFM consult (04/01/23) *monthly growth scans *OK [place] [facility] [place] de[place] GDM on Insulin (declines 2hr gtt) *Wkly NSTs @32wks and Twice wkly @36wks *Serial growth US *Deliver by [facility] OB Labs: Blood Type O Positive 11/21/22 Antibody Screen NEGATIVE 11/21/22 Hemoglobin 11.0 g/dl (12.0-16.0) L 03/28/23 Hematocrit 32.0 % (37.0-47.0) L 03/28/23 Mean Corpuscular Volume 90.5 fL (80.0-100.0) 11/21/22 Platelet Count 255 K/uL (130-400) 11/21/22 Rubella IgG Antibody Immune (Immune) 11/21/22 Rapid Plasma Reagin Nonreactive (Nonreactive) 11/21/22 Hepatitis B Surface Antigen Neg (Neg) 12/29/18 Hepatitis B Surface Antigen. NON-REACTIVE (NON-REACTIVE) 11/21/22 Hepatitis C Antibody (EIA) NON-REACTIVE (NON-REACTIVE) 11/21/22 HIV (1&2) Ab and P24 Ag, 4th Gener NON-REACTIVE (NON-REACTIVE) 03/29/21 HIV (1&2) Ag and Ab Confirmation NON-REACTIVE (NON-REACTIVE) 11/21/22 Glucose 1 Hour 50 gm Load 154 mg/dl (70-130) H 03/28/23 OB Optional Labs: Chlamydia trachomatis RNA Not Detected (NotDetected) 11/21/22 Neisseria gonorrhoeae RNA Not Detected (NotDetected) 11/21/22 Thyroid Stimulating Hormone (TSH) 1.880 uIu/ml (0.300-4.500) 10/24/17 Allergies Allergy/AdvReac Type Severity Reaction Status Date / Time adhesive Allergy Mild rash with Verified 06/17/23 08:43 bandaids Penicillins Allergy Mild RASH A Verified 06/17/23 08:43 BABY Home Medications Medication Instructions Recorded Confirmed Type prenat.vits,chinmay,adc-soqt-yrnwz 1 tab PO HS 03/12/19 06/19/23 History aspirin 81 mg chewable tablet 81 mg PO DAILY 04/11/23 06/19/23 History ferrous sulfate [Iron (ferrous PO 04/11/23 06/17/23 History sulfate)] esomeprazole magnesium 40 mg 40 mg PO DAILY #90 caps 04/28/23 06/19/23 Rx capsule,delayed release (Nexium) Patient History Medical History (Updated 06/19/23 @ 09:59 by Madhav Spears MD) Encounter for care and examination after delivery Antepartum variable deceleration 40 weeks gestation of Encounter for pre-operative examination History of melanoma Blighted ovum size inconsistent with dates History of angular cheilitis History of breast lump Acid reflux Surgical History (Updated 11/18/22 @ 13:12 by Elif Foster) S/P section History of dilation and curettage History of esophagogastroduodenoscopy (EGD) x2 S/P wisdom tooth extraction Status post Mohs surgery right ear, 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 Family History Mother Diabetes delivery Grandfather (Maternal) Leukemia Brother Dysrhythmia Other No family history of adverse response to anesthesia Denies family history of Ovarian cancer Prostate cancer Crohn's disease Myocardial infarction Breast cancer Colorectal cancer Social History (Updated 11/18/22 @ 13:07 by Elif Foster) Smoking Status: Never smoker Second Hand Exposure: No; Do You Dip or Chew Tobacco: No; Hx Alcohol Use: No Hx Substance Use: No Preferred Language: [place] Communication Ability: Effective Visual Impairment: No Limitations Hearing Ability: Normal Contract Manager Required: No Beliefs That Will Affect Care: None marital status: marital status details: Alexis (32) [phone] Current Living Situation: Family Current Living Situation Comment: lives with spouse and 2 children, no pets. current occupational status: employed current occupation: [employer] Feels Safe at Home: Yes Dental Care, Regularly: Yes Seatbelt Use: always Assistive Devices: None Physical Exam Genitourinary: normal external appearance OB Exam Abdomen: + vertex Manual OB Exam: + cervical dilation (2.5), + cervical effacement 70% and + station -2 OB Exam Monitor Tracing: + external FHT monitor used, + external uterine monitor used, + category I and + normal FHT variability; no early decelerations present, no late decelerations present and no variable decelerations Coding Level of Care Code None Diagnoses Previous delivery affecting , antepartum O34.219 Uterine synechiae N85.6 Encounter for supervision of normal in multigravida, antepartum Z34.80 Primigravida of advanced maternal age in third trimester O09.513 Trimester: third trimester Insulin controlled gestational diabetes mellitus (GDM) in third trimester O24.414 Trimester: third trimester (4) AMA (advanced maternal age) primigravida 35+ Trimester: third trimester Qualified Code(s): O09.513 - Supervision of elderly primigravida, third trimester (5) Insulin controlled gestational diabetes mellitus (GDM) during Trimester: third trimester Qualified Code(s): O24.414 - Gestational diabetes mellitus in , insulin controlled
[2023-06-19 10:30] LABS: Hematocrit (blood only) 38.1 % (37.0-47.0); Hemoglobin 12.7 g/dl (12.0-16.0); Mean Corpuscular Hemoglobin 31.6 pg (25.0-34.0); Mean Corpuscular Hgb Conc 33.3 g/dL (32.0-36.0); Mean Corpuscular Volume 94.8 fL (80.0-100.0); Mean Platelet Volume 10.4 fL (9.4-12.4); Platelet Count 165 K/uL (130-400); RDW Coefficient of Variation 14.2 % (11.5-14.5); RDW Standard Deviation 49.4 fL (36.4-46.3); Red Blood Count 4.02 M/uL (4.20-5.40)
[2023-06-19] MEDS: LACTATED RINGER'S 1,000 ML IV PRN ×2 (11:17→13:20)
[2023-06-19] MEDS ORDERED: fentANYL 2 MCG/ML BUPIVacaine 0.125%-NSS 100ML BAG EPI PRN ×2 (13:03→13:48)
[2023-06-19] MEDS ORDERED: BUPIVACAINE 0.25% PF 30 ML VIAL EPI STA ×2 (13:03→13:48)
[2023-06-19] MEDS ORDERED: LIDOCAINE 2%/EPINEPHRINE 1:200,000 20 ML PF EPI STA ×2 (13:03→13:48)
[2023-06-19] MEDS ORDERED: LIDOCAINE 2% MPF LOCAL 5 ML VIAL EPI PRN ×2 (13:03→13:48)
[2023-06-19] MEDS ORDERED: diphenhydrAMINE 50 MG/ML VIAL IV PRN ×2 (13:03→13:48)
[2023-06-19] MEDS ORDERED: BUPIVACAINE 0.25% PF 30 ML VIAL EPI PRN ×2 (13:03→13:48)
[2023-06-19] MEDS ORDERED: fentaNYL citrate PF 100 MCG/2 ML VIAL EPI PRN ×2 (13:03→13:48)
[2023-06-19] MEDS ORDERED: fentaNYL citrate PF 100 MCG/2 ML VIAL EPI STA ×2 (13:03→13:48)
[2023-06-19] MEDS ORDERED: NALOXONE HCL 1 MG in SODIUM CHLORIDE 0.9% 1,000 ML IV PRN ×2 (13:03→13:48)
[2023-06-19] MEDS ORDERED: ONDANSETRON INJ 2 MG/ML 2 ML VIAL IV PRN ×2 (13:03→13:48)
[2023-06-19] MEDS ORDERED: SODIUM CHLORIDE 0.9% PF INJ 10 ML VIAL EPI STA ×2 (13:03→13:48)
[2023-06-19] MEDS ORDERED: SODIUM CHLORIDE 0.9% PF INJ 10 ML VIAL EPI PRN ×2 (13:03→13:48)
[2023-06-19] MEDS ORDERED: ROPIVACAINE 0.5% PF 5 MG/ML 20 ML VIAL EPI PRN ×2 (13:03→13:48)
[2023-06-19] MEDS ORDERED: NALBUPHINE HCL 5 MG in SYRINGE 0 ML IV PRN ×2 (13:03→13:48)
[2023-06-19] MEDS ORDERED: ePHEDrine sulfate 50 MG/ML AMP IV PRN ×2 (13:03→13:48)
[2023-06-19] MEDS ORDERED: NALOXONE HCL 0.4 MG/1 ML VIAL/CARP IV PRN ×2 (13:03→13:48)
--- NOTE | 2023-06-19 13:03 | Anesthesiology Consultation ---
Date of Service June 19, 2023 Assessment & Plan ASA ASA3 Proposed Anesthesia Anesthesia Type: Labor Epidural Risk / Benefits Reviewed With: PT / POA / Parent / Guardian, Accepts Plan and Informed Consent Obtained History Height/Weight Height: 5 ft 2 in Weight: 68.039 kg Allergies Allergy/AdvReac Type Severity Reaction Status Date / Time adhesive Allergy Mild rash with Verified 06/17/23 08:43 bandaids Penicillins Allergy Mild RASH A Verified 06/17/23 08:43 BABY Medications Home Medications Medication Instructions Recorded Confirmed Last Taken prenat.vits,chinmay,[id number]-[id number]-ohgyj 1 tab PO HS 03/12/19 06/19/23 11/02/21 aspirin 81 mg chewable tablet 81 mg PO DAILY 04/11/23 06/19/23 Unknown ferrous sulfate [Iron (ferrous PO 04/11/23 06/17/23 Unknown sulfate)] esomeprazole magnesium 40 mg 40 mg PO DAILY #90 caps 04/28/23 06/19/23 Unknown capsule,delayed release (Nexium) Active Medications Generic Name Dose Route Start Last Admin Trade Name Freq PRN Reason Stop Dose Admin Bupivacaine HCl 30 ml 06/19/23 13:03 06/19/23 13:34 Bupivacaine 0.25% Pf 30 Ml Vial EPI 06/20/23 13:02 30 ml ONCE PRN Administration Epidural Redose Fentanyl Citrate 100 mcg 06/19/23 13:03 06/19/23 13:34 Fentanyl Citrate Pf 100 Mcg/2 Ml Vial EPI 06/20/23 13:02 100 mcg ONCE PRN Administration Epidural Redose Fentanyl/Bupivacaine/Sodium Chlor 100 ml 06/19/23 13:03 06/19/23 13:21 Fentanyl 2 Mcg/Ml Bupivacaine 0.125%-Nss 100ml Bag EPI 06/20/23 13:02 100 ml PRN PRN Administration Pain R/T Labor Protocol Lactated Ringer's 1,000 mls @ 125 mls/hr 06/19/23 09:38 06/19/23 13:20 Lr IV 06/21/23 09:37 125 mls/hr .Q8H PRN Administration L&D Protocol Protocol Past Medical History Medical History Encounter for care and examination after delivery Antepartum variable deceleration 40 weeks gestation of Encounter for pre-operative examination History of melanoma Blighted ovum size inconsistent with dates History of angular cheilitis History of breast lump Acid reflux Exercise / Class Metabolic Activity II 4-5 Yardwork/Stairs/Walk up hill Past Family History Family History Mother Diabetes delivery Grandfather (Maternal) Leukemia Brother Dysrhythmia Other No family history of adverse response to anesthesia Denies family history of Ovarian cancer Prostate cancer Crohn's disease Myocardial infarction Breast cancer Colorectal cancer Past Surgical History Surgical History S/P section History of dilation and curettage History of esophagogastroduodenoscopy (EGD) x2 S/P wisdom tooth extraction Status post Mohs surgery right ear, 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 Past Anesthesia History No Hx of Anesthesia Complications and No Family Hx of Anesthesia Complications History of PONV No Hx of PONV and No Hx of Motion Sickness Social History Smoking Status: Never smoker Do You Dip or Chew Tobacco: No Hx Alcohol Use: No Hx Substance Use: No substance use type: does not use Review of Systems denies fever/cough/ colds/ chest pain/ SOB/ SANDRA denies SANDRA Physical Exam Vital Signs Last Vital Signs Temp 36.9 C 06/19/23 10:41 Pulse 105 H 06/19/23 13:45 Resp 22 06/19/23 13:37 BP 106/61 06/19/23 13:45 Pulse Ox 96 06/19/23 13:45 ENMT Mouth: no TMJ abnormality and no dentition abnormality Thyromental Distance: > or= 3.5 Finger Breadths Mallampati Class: II Neck neck extension not limited Respiratory normal respiratory effort; no respiratory distress Auscultation: lungs clear to auscultation bilaterally Cardiovascular Rate/Rhythm: regular rate and regular rhythm Neurologic moves all extremities Psychiatric Orientation: alert and oriented x 3 Testing Laboratory Results 06/19/23 10:05 Blood Type O Positive 06/19/23 10:05 Antibody Screen NEGATIVE 06/19/23 10:05
--- NOTE | 2023-06-19 17:33 | Delivery Summary ---
Vaginal Delivery Summary Date of Service June 19, 2023 Vaginal Delivery Summary and 2nd Degree LAC Diana progressed to 10 cm dilated 100% effaced +2 station with rupture of membranes for augmentation/induction. Pushed over intact perineum with epidural anesthesia and delivered a viable male with weight and Apgars pending. Head of the delivered in PRATEEK position transition to right transverse. No nuchal cord was noted. Body and shoulders quickly followed and was noted to be vigorous upon delivery. A 1 minute delayed cord clamping was initiated after which the cord was double clamped and cut. Cord blood obtained. Attention was turned to deliver the placenta was delivered intact with three- vessel cord with gentle cord traction. On inspection of the perineum vagina and cervix there is noted to be a second-degree perineal laceration which was repaired with 3-0 Vicryl in the traditional crown stitch. Needle sponge and instrument counts are correct at the completion of the case. Both mother and stable in the immediate postdelivery [facility] Vaginal Delivery Charge Delivery Type Details: and 2nd Degree LAC
[2023-06-19] MEDS ORDERED: DIPHTHERIA/TETANUS/PERTUSSIS Vaccine (Tdap, Age 7+yrs) 0.5mL SYR/VL IM ONE (17:34)
[2023-06-19] MEDS ORDERED: oxyCODONE/ACETAMINOPHEN 5mg/325mg TAB PO PRN (17:34)
[2023-06-19] MEDS ORDERED: bisacodyL 10 MG SUPP PR PRN (17:34)
[2023-06-19] MEDS ORDERED: ACETAMINOPHEN 325 MG TAB PO PRN (17:34)
[2023-06-19] MEDS ORDERED: BENZOCAINE 20% SPRY 85 APPLN/85 GM CAN EXT PRN (17:34)
[2023-06-19] MEDS ORDERED: HYDROCORTISONE ACETATE 25 MG SUPP PR PRN (17:34)
[2023-06-19] MEDS: IBUPROFEN 600 MG TAB PO PRN ×2 (19:11→23:50)
--- NOTE | 2023-06-19 19:30 | Anesthesia Procedure Note ---
Date of Service June 19, 2023 Anesthesia Post Epidural Note Vital Signs Vital Signs: Temp Pulse Resp BP Pulse Ox 36.9 C 98 H 16 124/60 97 06/19/23 17:10 06/19/23 19:05 06/19/23 18:25 06/19/23 19:05 06/19/23 17:10 Notes Mental Status: alert / awake / arousable and participated in evaluation Nausea / Vomiting: adequately controlled Pain: adequately controlled Airway Patency, RR, SpO2: stable & adequate BP & HR: stable & adequate Hydration State: stable & adequate Neuraxial Anesthesia: was administered and sensory block resolved Anesthetic Complications: no major complications apparent and Pt Satisfied with anesthetic care Epidural: Removed without complications and With tip intact
[2023-06-19] MEDS: DOCUSATE SODIUM 100 MG CAP PO SCH (23:51)
[2023-06-20] MEDS: IBUPROFEN 600 MG TAB PO PRN (04:23)
[2023-06-20 06:43] LABS: Hematocrit (blood only) 31.4 % (37.0-47.0); Hemoglobin 10.5 g/dl (12.0-16.0); Mean Corpuscular Hemoglobin 31.4 pg (25.0-34.0); Mean Corpuscular Hgb Conc 33.4 g/dL (32.0-36.0); Mean Platelet Volume 10.6 fL (9.4-12.4); Platelet Count 159 K/uL (130-400); RDW Coefficient of Variation 14.2 % (11.5-14.5); RDW Standard Deviation 48.4 fL (36.4-46.3); Red Blood Count 3.34 M/uL (4.20-5.40); White Blood Count 7.14 K/ul (4.8-10.8)
[2023-06-20] MEDS: DOCUSATE SODIUM 100 MG CAP PO SCH (07:27)
[2023-06-20] MEDS ORDERED: PRENATAL VITAMIN 1 TAB PO SCH (08:00)
--- NOTE | 2023-06-20 08:01 | Obstetrical Progress Note ---
Date of Service June 20, 2023 Assessment & Plan (1) care following vaginal delivery: Plan: Doing well Encourage ambulation Pain control Dc today Admission and Anticipated Discharge Date Admission Date: June 19, 2023 Supervising Physician Co-Signing Physician Notes Patient seen with resident today and agree with the above findings and plan. Stable for discharge if preferred Subjective 37 yo post day 1 s/p Ambulation: ambulating normally Voiding: no voiding problems Passing Gas:: Yes Diet Tolerance:: regular diet Lochia:: Small Feeding Type:: breast feeding Current Pain Level: minimal Resting comfortably this AM in NAD. Denies SMITH, CP, SOB, N/V/D, LE pain/swelling. Review of Systems Review of Systems: reviewed, per HPI Physical Exam Physical Exam: General: patient resting comfortably, NAD, non-toxic in appearance, answers questions appropriately. Skin: warm, dry, intact HEENT: NC/AT, anicteric sclera, conjunctiva without injection, moist mucus membranes. Heart: +S1/S2, regular, no m/r/g Lungs: equal air entry bilaterally, no rales/rhonchi/wheezes Abd: +BS, soft, NT/ND, uterine fundus firm at umbilicus Ext: warm, no clubbing/cyanosis or edema, Vick's neg. Neuro: speech intact, no facial droop, moving all extremities on command. Results & Data Vital Signs (Past 12 Hours) Vital Signs Temp Pulse Resp BP Pulse Ox O2 Del Method 06/20/23 04:23 36.9 C 84 18 108/63 98 Room Air 06/19/23 23:20 36.8 C 78 18 127/71 98 Room Air 06/19/23 21:08 36.9 C 85 16 110/70 Room Air Resident Activity Tracking Resident Involvement: Resident Care Provided Care Provided: Adult Hospital Medicine
[2023-06-20] MEDS ORDERED: bisacodyL 5 MG TABEC PO SCH (20:00)
== END 2023-06-20 17:15 | disposition home or self-care (01) | DRG 807 ==
LOC: OPB 09:08 → 4S1 09:11 → 4E2 20:41